=== PATIENT | male | born 1970 | race Caucasian/White ===

== ENCOUNTER 2016-02-06 05:56 | Emergency (ER) | payer MEDICARE, MEDICAID ==
[~2016-02-06 05:56] MED LIST: /AUGM875TA; DILA2TAB; FLAG250T; MELOPOW; METH5TAB2; MOBIC; NICO21DI4; PERC5TAB8; SOMA350T; VICO5TAB; XANAX
[2016-02-06] MEDS ORDERED: ONDANSETRON 4MG/2ML VIAL (J2405) As Ordered ONE (07:48)
[2016-02-06] MEDS ORDERED: KETOROLAC 30 MG/ML VIAL (J1885) As Ordered ONE (07:48)
[2016-02-06 07:59] LABS: BASO # 0.1 K/mm3 (0.0-0.2); BASO % 0.5 % (0.0-1.0); EOS # 0.1 K/mm3 (0.0-0.50); EOS % 0.7 % (0.0-3.0); LARGE UNSTAINED CELL # 0.1 K/mm3 (0.0-0.4); LARGE UNSTAINED CELL % 1.1 % (0.0-4.0); LYMPH # 1.2 K/mm3 (1.5-4.5); LYMPH % 10.1 % (24.0-44.0); MEAN CORPUSCULAR HEMOGLOBIN 29.9 pg (27.0-33.0); MEAN CORPUSCULAR HGB CONC 33.7 g/dl (32.0-36.5); MEAN CORPUSCULAR VOLUME 88.5 fl (80.0-96.0); MONO # 0.6 K/mm3 (0.0-0.8); MONO % 4.6 % (0.0-5.0); NEUTROPHILS # 10.2 K/mm3 (1.8-7.7); PLATELET COUNT, AUTOMATED 181 k/mm3 (150-450); RED CELL DISTRIBUTION WIDTH 13.2 % (11.5-14.5); WHITE BLOOD COUNT 12.3 K/mm3 (4.0-10.0)
[2016-02-06 08:11] LABS: AMPHETAMINES LEVEL URINE POSITIVE (NEGATIVE); BENZODIAZEPINES URINE POSITIVE (NEGATIVE); COCAINE METABOLITE URINE NEGATIVE (NEGATIVE); CONTROL LINE INT CTR LINE PRESENT; METHADONE URINE NEGATIVE (NEGATIVE); OPIATES URINE NEGATIVE (NEGATIVE); TRICYCLIC ANTIDEPRESS URINE NEGATIVE (NEGATIVE)
[2016-02-06 08:23] LABS: ALBUMIN 3.7 GM/DL (3.2-5.2); ALBUMIN/GLOBULIN RATIO 1.19 (1.00-1.93); ALKALINE PHOSPHATASE 101 U/L (45-117); ALT/SGPT 19 U/L (12-78); AMYLASE 65 U/L (25-115); ANION GAP 8 MEQ/L (8-16); AST/SGOT 11 U/L (15-37); BILIRUBIN,DIRECT 0.1 MG/DL (0.0-0.2); BILIRUBIN,TOTAL 0.4 MG/DL (0.2-1.0); BLOOD UREA NITROGEN 11 MG/DL (7-18); CALCIUM LEVEL 8.7 MG/DL (8.5-10.1); CARBON DIOXIDE LEVEL 27 MEQ/L (21-32); CHLORIDE LEVEL 107 MEQ/L (98-107); CREATININE FOR GFR 0.83 MG/DL (0.70-1.30); GLOMERULAR FILTRATION RATE > 60.0 (>60); GLUCOSE, FASTING 104 MG/DL (70-105); POTASSIUM SERUM 3.8 MEQ/L (3.5-5.1); SODIUM LEVEL 142 MEQ/L (136-145); TOTAL PROTEIN 6.8 GM/DL (6.4-8.2)
--- NOTE | 2016-02-06 08:29 | REP ---
Clinical: Foreign body. Technique: AP and lateral views of the soft tissues neck. Findings: Visualized soft tissues are normal in appearance and position. No subcutaneous emphysema or radiodense foreign body appreciated. The nasopharyngeal through upper tracheal airway is patent and normal. Prevertebral soft tissues are normal. Osseous structures are intact. Moderate degenerative changes noted at the C5-6 and C6-7 level. Impression: Normal soft tissues without obvious foreign body or subcutaneous emphysema. Signed by Glenn Hauser MD 02/06/2016 08:21 A
--- NOTE | 2016-02-06 08:37 | REP ---
Clinical: Abdominal pain. Technique: Single supine view of the abdomen and pelvis. Findings: Bowel gas pattern is nonspecific. No organomegaly. No abnormal calcifications. Skeletal structures are intact. Impression: Nonspecific bowel gas pattern. Signed by Glenn Hauser MD 02/06/2016 08:29 A
--- NOTE | 2016-02-06 09:34 | EDDOCDS ---
Physician Documentation [facility] Name: Mikie Zhang Age: 45 yrs Sex: Male : 1970 Arrival Date: 02/06/2016 Time: 05:56 Bed 14 Private MD: Disposition: 02/06/16 09:10 Discharged to Home/Self Care. Impression: Foreign body of alimentary tract, part unspecified - Swallowed Tooth brush cap per pt, Generalized abdominal pain, Opioid abuse with unspecified opioid-induced disorder - Benzodiazepine and amphetamine abuse, Superficial injury of head. - Condition is Stable. - Discharge Instructions: Abdominal Pain, Adult, Opioid Use Disorder, Swallowed Foreign Body, Adult, [id number], Head Injury, Adult, Aqvy-js-Ivkj. - Prescriptions for Bentyl 20 mg Oral Tablet - take 1 tablet by ORAL route every 6 hours As needed; 20 tablet. Ibuprofen 800 mg Oral Tablet - take 1 tablet by ORAL route every 8 hours As needed take with food; 30 tablet. ZOFRAN ODT 4 mg - dissolve 1 tablet by ORAL route 4 times per day As needed do not chew, do not swallow whole; 10 tablet. - Medication Reconciliation, Local Pharmacy Hours, Referral List Call for Appointment form. - [facility] ; When: 1 - 2 days; Reason: Recheck today's complaints, Continuance of care. Follow up: Emergency Department; Reason: Worsening of conditions. - Problem is new. - Symptoms have improved. Historical: - Allergies: Sporanox; - Home Meds: 1. none - PMHx: Unable to obtain; - PSHx: none; - Social history: Smoking status: Patient uses tobacco products, current some day smoker. Patient/guardian denies using alcohol, street drugs, No barriers to communication noted, The patient speaks fluent Telugu. - Family history: Not pertinent. - : The pt / caregiver states he / she is not on anticoagulants. Home medication list is obtained from the patient. - Exposure Risk Screening:: None identified. Vital Signs: 02/05 05:55 BP 139 / 65 (auto/); af2 05:57 Pulse 118 MON; Pulse Ox 96% ; af2 05:58 Pulse 116 MON; Pulse Ox 95% ; af2 06:04 BP 139 / 65; Pulse 117; Resp 18; Temp 98.1(TE); Pulse Ox 95% on R/A; Weight 81.65 kg / jp6 180.01 lbs; Height 6 ft. 0 in. (182.88 cm); Pain 8/10; 06:46 BP 149 / 96 (auto/); af2 08:56 BP 137 / 85; Pulse 104; Resp 18; Pulse Ox 97% on R/A; Pain 8/10; jjr 06:04 Body Mass Index 24.41 (81.65 kg, 182.88 cm) jp6 MDM: 07:25 IV Saline Lock ordered. ef1 07:25 NS 0.9% 1000 ml IV at bolus once ordered. ef1 07:25 Ondansetron 4 mg IVP once ordered. ef1 07:25 ketorolac 30 mg IVP once ordered. ef1 07:25 Undress patient appropriately for examination ordered. ef1 07:27 KUB Ordered. EDMS 07:27 Soft Tissue Neck Ordered. EDMS 07:27 Amylase Ordered. EDMS 07:27 Basic Metabolic Profile Ordered. EDMS 07:27 CBC with Diff Ordered. EDMS 07:27 Lipase Ordered. EDMS 07:27 Liver Profile Ordered. EDMS 07:27 Urinalysis Ordered. EDMS 07:27 Urine Culture Ordered. EDMS 07:27 Drug Eval Toxicology ED Only Ordered. EDMS 07:27 NOTHING BY MOUTH+DIET ordered. EDMS 07:30 ETHYL ALCOHOL (ETHANOL) Ordered. EDMS 08:49 CBC with Diff Reviewed. ef1 08:49 Liver Profile Reviewed. ef1 08:49 Drug Eval Toxicology ED Only Reviewed. ef1 08:49 Amylase Reviewed. ef1 08:49 Basic Metabolic Profile Reviewed. ef1 08:49 Lipase Reviewed. ef1 08:49 Urinalysis Reviewed. ef1 08:49 ETHYL ALCOHOL (ETHANOL) Reviewed. ef1 08:49 Soft Tissue Neck Reviewed. ef1 Administered Medications: 08:01 Drug: NS 0.9% 1000 ml [sodium chloride 0.9 % intravenous solution] Route: IV; Rate: hs1 bolus; Site: right antecubital; 09:31 Follow up: IV Status: Infusion discontinued; IV Intake: 400ml jjr 08:07 Drug: Ondansetron 4 mg [ondansetron HCl 2 mg/mL intravenous solution (2 mL)] Route: pml IVP; Site: right antecubital; 08:07 Drug: ketorolac 30 mg [ketorolac 30 mg/mL (1 mL) injection solution (1 mL)] Route: IVP; pml Site: right antecubital; Signatures: Dispatcher [employer] Nydia Hopkins, RN RN Natalie Perez PA-C [id number] ef1 Nydia Haro RN RN jp6 Areli Mendenhall RN 1 Sheila Amezcua RN pml The chart was reviewed and I authenticate all verbal orders and agree with the evaluation and treatment provided.Corrections: (The following items were deleted from the chart) 06:04 06:02 PMHx: Chronic Back pain [Inactive]; jp6 jp6 07:31 07:28 ETHYL ALCOHOL (ETHANOL)+LAB ordered. EDMS EDMS 08:10 07:27 Abdomen,Flat\E\Upright,PA CHEST+XR ordered. EDMS EDMS MTDD
--- NOTE | 2016-02-06 09:34 | EDDOCDS ---
Nurse's Notes [facility] Name: Mikie Zhang Age: 45 yrs Sex: Male : 1970 Arrival Date: 02/06/2016 Time: 05:56 Bed 14 Private MD: Diagnosis: Foreign body of alimentary tract, part unspecified-Swallowed Tooth brush cap per pt;Generalized abdominal pain;Opioid abuse with unspecified opioid-induced disorder-Benzodiazepine and amphetamine abuse;Superficial injury of head Presentation: 02/05 06:00 Presenting complaint: Patient states: "I was walking down stairs and my arm hit the jp6 wall and I swallowed my toothbrush cap=-3hours before this happened I was going to call ambulance for my intestine pain-allergy: pt stated I had morphine once and it made my heart feel funny so they give me dilaudid now,just thought you'd like to know". Adult Sepsis Screening: The patient does not have new or worsening altered mentation. Patient's respiratory rate is less than 22. Systolic blood pressure is greater than 100. Patient has a qSOFA score of 0- Negative Sepsis Screen. Suicide/Homicide risk assessment- the patient denies having any suicidal and/or homicidal ideations and does not present with any other emotional, behavioral or mental health complaints. Status: Patient is not a client services associate or dependent. Transition of care: patient was not received from another setting of care. 06:00 Acuity: CRISTÓBAL Level 4 jp6 06:00 Method Of Arrival: Ambulance jp6 Triage Assessment: 06:04 General: Appears distressed, uncomfortable, well developed, Behavior is cooperative, jp6 restless. Pain: Location: abdomen. HIV screening NA for this visit. The patient is triaged at the bedside. See Assessment in Nurses Notes section of ED record. Neurological: No deficits noted. Level of Consciousness is awake, alert, Oriented to person, place, time, EENT: No deficits noted. Cardiovascular: No deficits noted. Respiratory: Airway is patent Respiratory effort is even, unlabored, Respiratory pattern is regular, symmetrical, Breath sounds with wheezes expiratory. GI: Abdomen is flat, Bowel sounds hypoactive in right upper quadrant, left upper quadrant, right lower quadrant and left lower quadrant. : No deficits noted. Derm: No deficits noted. Skin is pink, warm & dry. Musculoskeletal: No deficits noted. Historical: - Allergies: Sporanox; - Home Meds: 1. none - PMHx: Unable to obtain; - PSHx: none; - Social history: Smoking status: Patient uses tobacco products, current some day smoker. Patient/guardian denies using alcohol, street drugs, No barriers to communication noted, The patient speaks fluent [place]. - Family history: Not pertinent. - : The pt / caregiver states he / she is not on anticoagulants. Home medication list is obtained from the patient. - Exposure Risk Screening:: None identified. Screenin:08 Screening information is obtained from the patient. Fall risk: No risks identified. jp6 Assistance ADL's: requires no assistance with activities of daily living. Abuse/DV Screen: The patient / caregiver reports he/she is: not in a situation that causes fear, pain or injury. Nutritional screening: No deficits noted. Advance Directives: Currently, there is no health care proxy. There is no active DNR order. There is no living will. home support is adequate. Assessment: 06:08 General: see triage assessment. jp6 06:48 General: pt found on floor of room per house keeper, pt put himself back in bed, denies sls1 loc, pt has noted laceration to back of his head, Dr Fountain aware. Pt denies neck pain or loc. 07:50 General: Appears in no apparent distress, unkempt, Behavior is appropriate for age, pml cooperative. Pain: Location: abdomen Pain currently is 8 out of 10 on a pain scale. Neurological: Level of Consciousness is awake, alert, Oriented to person, place, time. EENT: Reports "scratching" in his throat. Cardiovascular: Capillary refill < 3 seconds. Respiratory: Airway is patent Respiratory effort is even, unlabored. GI: Abdomen is non- distended. Derm: Skin is pink, warm & dry. 08:07 General: Pt stating Toradol and Zofran do not work for him - PA aware and no new pml orders. Pt advised that the provider will not be prescribing any new meds at this time. Pt agrees to take prescribed toradol and zofran. states "It wont work I'll just be calling out in 20 minutes" states "She has an oath to uphold, she has to make sure I leave here without pain" . 08:56 General: Appears in no apparent distress, reports no change in diffuse cramping abd jjr pain, denies nausea, reports diarrhea, abd pain for past 1.5 days, pt was requesting to leave to smoke informed he can't leave dept with IV access pt verbalizes understanding. 09:32 General: Appears in no apparent distress, Behavior is appropriate for age. General: jjr reports will walk 2 blocks to home. Pain: Location: abdomen. Neurological: Level of Consciousness is awake, alert, obeys commands, Moves all extremities. Gait is steady, Speech is normal. GI: Denies nausea. Derm: No deficits noted. Vital Signs: 05:55 BP 139 / 65 (auto/); af2 05:57 Pulse 118 MON; Pulse Ox 96% ; af2 05:58 Pulse 116 MON; Pulse Ox 95% ; af2 06:04 BP 139 / 65; Pulse 117; Resp 18; Temp 98.1(TE); Pulse Ox 95% on R/A; Weight 81.65 kg; jp6 Height 6 ft. 0 in. (182.88 cm); Pain 8/10; 06:46 BP 149 / 96 (auto/); af2 08:56 BP 137 / 85; Pulse 104; Resp 18; Pulse Ox 97% on R/A; Pain 8/10; jjr 06:04 Body Mass Index 24.41 (81.65 kg, 182.88 cm) jp6 Vitals: 06:04 Log In Time N/A - ambulance arrival. jp6 ED Course: 05:57 Patient visited by Zoe Pelaez PCA. tmm1 05:57 Patient moved to 14 tm 05:59 Zahra Suarez LPN is Primary Nurse. slm 06:00 Nydia Haro,RN is Primary Nurse. jp6 06:00 Patient visited by Nydia Haro,YESSENIA. jp6 06:02 Triage Initiated jp6 06:08 The patient / caregiver is instructed regarding the plan of care and ED course. jp6 06:49 Patient visited by Oneyda Lee,RN. af2 07:09 Natalie Ramos PA-C is PHCP. ef1 07:09 Sarah Wayne MD is Attending Physician. ef1 07:10 Patient visited by Natalie Ramos PA-C. ef1 07:42 Patient visited by Natalie Ramos PA-C. ef1 07:50 Patient has correct armband on for positive identification. Placed in gown. Bed in low pml position. Side rails up X2. 07:50 Inserted peripheral IV: 20gauge IV in right antecubital area and blood collected. pml Patient tolerated the procedure well. 07:53 Patient visited by Sheila Amezcua RN. pml 08:09 Patient visited by Sheila Amezcua RN. pml 08:37 Soft Tissue Neck Returned. EDMS 08:49 Patient visited by Natalie Ramos PA-C. ef1 09:00 KUB Returned. EDMS 09:10 [facility] is Referral Physician. ef1 09:32 Discontinued lock intact, bleeding controlled, pressure dressing applied, No jjr redness/swelling at site. No procedures done that require assistance. Administered Medications: 08:01 Drug: NS 0.9% 1000 ml [sodium chloride 0.9 % intravenous solution] Route: IV; Rate: hs1 bolus; Site: right antecubital; 09:31 Follow up: IV Status: Infusion discontinued; IV Intake: 400ml jjr 08:07 Drug: Ondansetron 4 mg [ondansetron HCl 2 mg/mL intravenous solution (2 mL)] Route: pml IVP; Site: right antecubital; 08:07 Drug: ketorolac 30 mg [ketorolac 30 mg/mL (1 mL) injection solution (1 mL)] Route: IVP; pml Site: right antecubital; Intake: 09:31 IV: 400.00ml; Total: 400.00ml. jjr Order Results: Lab Order: Amylase; SPEC'M 02/06/16 07:48 Test: AMYLASE; Value: 65; Range: 25-115; Units: U/L; Status: F Lab Order: Basic Metabolic Profile; SPEC'M 02/06/16 07:48 Test: GLUCOSE, FASTING; Value: 104; Range: 70-105; Units: MG/DL; Status: F Test: BLOOD UREA NITROGEN; Value: 11; Range: 7-18; Units: MG/DL; Status: F Test: CREATININE FOR GFR; Value: 0.83; Range: 0.70-1.30; Units: MG/DL; Status: F Test: GLOMERULAR FILTRATION RATE; Value: > 60.0; Range: >60; Status: F Test: SODIUM LEVEL; Value: 142; Range: 136-145; Units: MEQ/L; Status: F Test: POTASSIUM SERUM; Value: 3.8; Range: 3.5-5.1; Units: MEQ/L; Status: F Test: CHLORIDE LEVEL; Value: 107; Range: 98-107; Units: MEQ/L; Status: F Test: CARBON DIOXIDE LEVEL; Value: 27; Range: 21-32; Units: MEQ/L; Status: F Test: ANION GAP; Value: 8; Range: 8-16; Units: MEQ/L; Status: F Test: CALCIUM LEVEL; Value: 8.7; Range: 8.5-10.1; Units: MG/DL; Status: F Test Note: ; Units are mL/min/1.73 m2 Chronic Kidney Disease Staging per NKF: Stage I & II GFR >=60 Normal to Mildly Decreased Stage III GFR 30-59 Moderately Decreased Stage IV GFR 15-29 Severely Decreased Stage V GFR <15 Very Little GFR Left ESRD GFR <15 on HUB BORER Lab Order: CBC with Diff; SPEC'M 02/06/16 07:48 Test: WHITE BLOOD COUNT; Value: 12.3; Range: 4.0-10.0; Abnormal: Above high normal; Units: K/mm3; Status: F Test: RED BLOOD COUNT; Value: 4.83; Range: 4.30-6.10; Units: M/mm3; Status: F Test: HEMOGLOBIN; Value: 14.4; Range: 14.0-18.0; Units: g/dl; Status: F Test: HEMATOCRIT; Value: 42.8; Range: 42.0-52.0; Units: %; Status: F Test: MEAN CORPUSCULAR VOLUME; Value: 88.5; Range: 80.0-96.0; Units: fl; Status: F Test: MEAN CORPUSCULAR HEMOGLOBIN; Value: 29.9; Range: 27.0-33.0; Units: pg; Status: F Test: MEAN CORPUSCULAR HGB CONC; Value: 33.7; Range: 32.0-36.5; Units: g/dl; Status: F Test: RED CELL DISTRIBUTION WIDTH; Value: 13.2; Range: 11.5-14.5; Units: %; Status: F Test: PLATELET COUNT, AUTOMATED; Value: 181; Range: 150-450; Units: k/mm3; Status: F Test: NEUTROPHILS %; Value: 83.0; Range: 36.0-66.0; Abnormal: Above high normal; Units: %; Status: F Test: LYMPH %; Value: 10.1; Range: 24.0-44.0; Abnormal: Below low normal; Units: %; Status: F Test: MONO %; Value: 4.6; Range: 0.0-5.0; Units: %; Status: F Test: EOS %; Value: 0.7; Range: 0.0-3.0; Units: %; Status: F Test: BASO %; Value: 0.5; Range: 0.0-1.0; Units: %; Status: F Test: LARGE UNSTAINED CELL %; Value: 1.1; Range: 0.0-4.0; Units: %; Status: F Test: NEUTROPHILS #; Value: 10.2; Range: 1.8-7.7; Abnormal: Above high normal; Units: K/mm3; Status: F Test: LYMPH #; Value: 1.2; Range: 1.5-4.5; Abnormal: Below low normal; Units: K/mm3; Status: F Test: MONO #; Value: 0.6; Range: 0.0-0.8; Units: K/mm3; Status: F Test: EOS #; Value: 0.1; Range: 0.0-0.50; Units: K/mm3; Status: F Test: BASO #; Value: 0.1; Range: 0.0-0.2; Units: K/mm3; Status: F Test: LARGE UNSTAINED CELL #; Value: 0.1; Range: 0.0-0.4; Units: K/mm3; Status: F Lab Order: Lipase; SPEC' 02/06/16 07:48 Test: LIPASE; Value: 94; Range: 73-393; Units: U/L; Status: F Lab Order: Liver Profile; SPEC' 02/06/16 07:48 Test: AST/SGOT; Value: 11; Range: 15-37; Abnormal: Below low normal; Units: U/L; Status: F Test: ALT/SGPT; Value: 19; Range: 12-78; Units: U/L; Status: F Test: ALKALINE PHOSPHATASE; Value: 101; Range: 45-117; Units: U/L; Status: F Test: BILIRUBIN,TOTAL; Value: 0.4; Range: 0.2-1.0; Units: MG/DL; Status: F Test: BILIRUBIN,DIRECT; Value: 0.1; Range: 0.0-0.2; Units: MG/DL; Status: F Test: TOTAL PROTEIN; Value: 6.8; Range: 6.4-8.2; Units: GM/DL; Status: F Test: ALBUMIN; Value: 3.7; Range: 3.2-5.2; Units: GM/DL; Status: F Test: ALBUMIN/GLOBULIN RATIO; Value: 1.19; Range: 1.00-1.93; Status: F Lab Order: Urinalysis; SPEC'M 02/06/16 07:48 Test: APPEARANCE, URINE; Value: CLEAR; Range: CLEAR; Status: F Test: COLOR, URINE; Value: YELLOW; Range: YELLOW; Status: F Test: PH,URINE; Value: 7.0; Range: 5.0-9.0; Units: UNITS; Status: F Test: SPECIFIC GRAVITY URINE AUTO; Value: 1.014; Range: 1.002-1.035; Status: F Test: PROTEIN, URINE AUTO; Value: NEGATIVE; Range: NEGATIVE; Units: mg/dL; Status: F Test: GLUCOSE, URINE (UA) AUTO; Value: NEGATIVE; Range: NEGATIVE; Units: mg/dL; Status: F Test: KETONE, URINE AUTO; Value: NEGATIVE; Range: NEGATIVE; Units: mg/dL; Status: F Test: UROBILINOGEN, URINE AUTO; Value: 0.2; Range: 0.0-2.0; Units: mg/dL; Status: F Test: BILIRUBIN, URINE AUTO; Value: NEGATIVE; Range: NEGATIVE; Status: F Test: NITRITE, URINE AUTO; Value: NEGATIVE; Range: NEGATIVE; Status: F Test: LEUKOCYTE ESTERASE, URINE AUTO; Value: NEGATIVE; Range: NEGATIVE; Status: F Test: BLOOD, URINE BLOOD; Value: NEGATIVE; Range: NEGATIVE; Status: F Test: WBC, URINE AUTO; Value: 0; Range: 0-3; Units: /HPF; Status: F Test: RBC, URINE AUTO; Value: 1; Range: 0-3; Units: /HPF; Status: F Test: BACTERIA, URINE AUTO; Value: NEGATIVE; Range: NEGATIVE; Status: F Test: SQUAMOUS EPITHELIAL CELL UR AU; Value: 0; Range: 0-6; Units: /HPF; Status: F Test: MUCUS, URINE; Value: SMALL; Range: NEGATIVE; Status: F Test: HYALINE CAST, URINE AUTO; Value: 11; Range: 0-1; Units: /LPF; Status: F Lab Order: Drug Eval Toxicology ED Only; SPEC'M 02/06/16 07:48 Test: AMPHETAMINES LEVEL URINE; Value: POSITIVE; Range: NEGATIVE; Abnormal: Above high normal; Status: F Test: BARBITURATES URINE; Value: NEGATIVE; Range: NEGATIVE; Status: F Test: BENZODIAZEPINES URINE; Value: POSITIVE; Range: NEGATIVE; Abnormal: Above high normal; Status: F Test: CANNABINOIDS URINE; Value: NEGATIVE; Range: NEGATIVE; Status: F Test: COCAINE METABOLITE URINE; Value: NEGATIVE; Range: NEGATIVE; Status: F Test: METHADONE URINE; Value: NEGATIVE; Range: NEGATIVE; Status: F Test: OPIATES URINE; Value: NEGATIVE; Range: NEGATIVE; Status: F Test: TRICYCLIC ANTIDEPRESS URINE; Value: NEGATIVE; Range: NEGATIVE; Status: F Test Note: ; ALL PRESUMPTIVE POSITIVE FINDINGS ARE UNCONFIRMED NORMAL VALUES THRESHOLD IN NG/ML AMPHETAMINES 1000 METHAMPHETAMINES 1000 BARBITURATES 300 BENZODIAZEPINES 300 CANNABINOIDS (THC) 50 COCAINE METABOLITE 300 METHADONE 300 OPIATES 300 PHENCYCLIDINE 25 TRICYCLIC ANTIDEPRESSANTS 1000 RESULTS ARE FOR MEDICAL PURPOSES ONLY. ALL URINE SPECIMENS WILL BE SAVED FOR 3 DAYS. IF CONFIRMATION OF A PRESUMPTIVE POSTIVE SCREEN RESULT IS DESIRED, CALL CHEMISTRY ([phone]) AND REQUEST URINE TO BE SENT TO REFERENCE LAB. FOR A LIST OF CLOSELY RELATED COMPOUNDS PLEASE CALL THE LAB. Lab Order: ETHYL ALCOHOL (ETHANOL); SPEC'M 02/06/16 07:48 Test: ETHYL ALCOHOL (ETHANOL); Value: < 0.003; Range: 0.000-0.010; Units: %; Status: F Radiology Order: KUB Test: KUB REASON FOR EXAMINATION: Abdomen Pain; Clinical: Abdominal pain.; ; Technique: Single supine view of the abdomen and pelvis.; ; Findings:; Bowel gas pattern is nonspecific. No organomegaly. No abnormal calcifications.; Skeletal structures are intact.; ; Impression:; Nonspecific bowel gas pattern.; ; ; ; Signed by; Glenn Hauser MD 02/06/2016 08:29 A; Radiology Order: Soft Tissue Neck Test: Soft Tissue Neck REASON FOR EXAMINATION: Foreign Body; Clinical: Foreign body.; ; Technique: AP and lateral views of the soft tissues neck.; ; Findings:; Visualized soft tissues are normal in appearance and position. No subcutaneous; emphysema or radiodense foreign body appreciated. The nasopharyngeal through; upper tracheal airway is patent and normal. Prevertebral soft tissues are; normal. Osseous structures are intact. Moderate degenerative changes noted at; the C5-6 and C6-7 level.; ; Impression:; Normal soft tissues without obvious foreign body or subcutaneous emphysema.; ; ; Signed by; Glenn Hauser MD 02/06/2016 08:21 A; Outcome: 09:10 Discharge ordered by Provider. ef1 09:32 Discharge Assessment: patient administered narcotics - no. The following High Risk jjr Discharge criteria are identified: None. Discharged to home ambulatory. Condition: stable. Discharge instructions given to patient, Instructed on discharge instructions, follow up and referral plans. medication usage, Demonstrated understanding of instructions, medications, Prescriptions given X 3. No special radiology studies were completed. Property sent home with patient. 09:33 Patient left the ED. jjr Signatures: Dispatcher [employer] EDMS Nydia Estrada, RN RN jjr Natalie Ramos, PA-C PA-C ef1 Areli Mendenhall RN RN hs1 Yane Yang RN RN sls1 Sheila Amezcua,RN RN pml McLear, Zoe, BREAD WRAPPING MACHINE FEEDER BREAD WRAPPING MACHINE FEEDER tmm1 Zahra Suarez,RESTAURANT ASSOCIATE RESTAURANT ASSOCIATE Oneyda Gutierrez RN RN af2 Nydia Haro,RN RN jp6 Corrections: (The following items were deleted from the chart) 06:04 06:02 PMHx: Chronic Back pain [Inactive]; jp6 jp6 MTDD
--- NOTE | 2016-02-08 10:34 | EDDOCDS ---
Physician Documentation [facility] Name: Mikie Zhang Age: 45 yrs Sex: Male : 1970 Arrival Date: 02/06/2016 Time: 05:56 Bed 14 Private MD: Disposition: 02/06/16 09:10 Discharged to Home/Self Care. Impression: Foreign body of alimentary tract, part unspecified - Swallowed Tooth brush cap per pt, Generalized abdominal pain, Opioid abuse with unspecified opioid-induced disorder - Benzodiazepine and amphetamine abuse, Superficial injury of head. - Condition is Stable. - Discharge Instructions: Abdominal Pain, Adult, Opioid Use Disorder, Swallowed Foreign Body, Adult, [id number], Head Injury, Adult, [id number]. - Prescriptions for Bentyl 20 mg Oral Tablet - take 1 tablet by ORAL route every 6 hours As needed; 20 tablet. Ibuprofen 800 mg Oral Tablet - take 1 tablet by ORAL route every 8 hours As needed take with food; 30 tablet. ZOFRAN ODT 4 mg - dissolve 1 tablet by ORAL route 4 times per day As needed do not chew, do not swallow whole; 10 tablet. - Medication Reconciliation, Local Pharmacy Hours, Referral List Call for Appointment form. - [facility] ; When: 1 - 2 days; Reason: Recheck today's complaints, Continuance of care. Follow up: Emergency Department; Reason: Worsening of conditions. - Problem is new. - Symptoms have improved. Historical: - Allergies: Sporanox; - Home Meds: 1. none - PMHx: Unable to obtain; - PSHx: none; - Social history: Smoking status: Patient uses tobacco products, current some day smoker. Patient/guardian denies using alcohol, street drugs, No barriers to communication noted, The patient speaks fluent Yi. - Family history: Not pertinent. - : The pt / caregiver states he / she is not on anticoagulants. Home medication list is obtained from the patient. - Exposure Risk Screening:: None identified. Vital Signs: 02/05 05:55 BP 139 / 65 (auto/); af2 05:57 Pulse 118 MON; Pulse Ox 96% ; af2 05:58 Pulse 116 MON; Pulse Ox 95% ; af2 06:04 BP 139 / 65; Pulse 117; Resp 18; Temp 98.1(TE); Pulse Ox 95% on R/A; Weight 81.65 kg / jp6 180.01 lbs; Height 6 ft. 0 in. (182.88 cm); Pain 8/10; 06:46 BP 149 / 96 (auto/); af2 08:56 BP 137 / 85; Pulse 104; Resp 18; Pulse Ox 97% on R/A; Pain 8/10; jjr 06:04 Body Mass Index 24.41 (81.65 kg, 182.88 cm) jp6 MDM: 07:25 IV Saline Lock ordered. ef1 07:25 NS 0.9% 1000 ml IV at bolus once ordered. ef1 07:25 Ondansetron 4 mg IVP once ordered. ef1 07:25 ketorolac 30 mg IVP once ordered. ef1 07:25 Undress patient appropriately for examination ordered. ef1 07:27 KUB Ordered. EDMS 07:27 Soft Tissue Neck Ordered. EDMS 07:27 Amylase Ordered. EDMS 07:27 Basic Metabolic Profile Ordered. EDMS 07:27 CBC with Diff Ordered. EDMS 07:27 Lipase Ordered. EDMS 07:27 Liver Profile Ordered. EDMS 07:27 Urinalysis Ordered. EDMS 07:27 Urine Culture Ordered. EDMS 07:27 Drug Eval Toxicology ED Only Ordered. EDMS 07:27 NOTHING BY MOUTH+DIET ordered. EDMS 07:30 ETHYL ALCOHOL (ETHANOL) Ordered. EDMS 08:49 CBC with Diff Reviewed. ef1 08:49 Liver Profile Reviewed. ef1 08:49 Drug Eval Toxicology ED Only Reviewed. ef1 08:49 Amylase Reviewed. ef1 08:49 Basic Metabolic Profile Reviewed. ef1 08:49 Lipase Reviewed. ef1 08:49 Urinalysis Reviewed. ef1 08:49 ETHYL ALCOHOL (ETHANOL) Reviewed. ef1 08:49 Soft Tissue Neck Reviewed. ef1 09:37 Financial registration complete. mm15 10:08 [facility] Payment Agreement was scanned into [employer] and attached to record. mm15 11:30 T-Sheet-- Draft Copy was scanned into [employer] and attached to record. [facility] 02/06 12:50 Radiology Report was scanned into [employer] and attached to record. gb Administered Medications: 02/05 08:01 Drug: NS 0.9% 1000 ml [sodium chloride 0.9 % intravenous solution] Route: IV; Rate: hs1 bolus; Site: right antecubital; 09:31 Follow up: IV Status: Infusion discontinued; IV Intake: 400ml j 08:07 Drug: Ondansetron 4 mg [ondansetron HCl 2 mg/mL intravenous solution (2 mL)] Route: pml IVP; Site: right antecubital; 08:07 Drug: ketorolac 30 mg [ketorolac 30 mg/mL (1 mL) injection solution (1 mL)] Route: IVP; pml Site: right antecubital; Signatures: Dispatcher [employer] EDMS Jia Wiggins, Reg Reg gb Nydia Estrada, RN RN Natalie Perez PA-C PAAbdirizakC ef1 Tushar Alicia mm15 Nydia Haro,RN RN jp6 Sarah Serrato Hannah RN hs1 Sheila Amezcua RN pml The chart was reviewed and I authenticate all verbal orders and agree with the evaluation and treatment provided.Corrections: (The following items were deleted from the chart) 06:04 06:02 PMHx: Chronic Back pain [Inactive]; jp6 jp6 07:31 07:28 ETHYL ALCOHOL (ETHANOL)+LAB ordered. EDMS EDMS 08:10 07:27 Abdomen,Flat\E\Upright,PA CHEST+XR ordered. EDMS EDMS Attachments: 10:08 [facility] Payment Agreement mm15 11:30 T-Sheet-- Draft Copy [facility] Chart Complete MTDD
--- NOTE | 2016-02-08 10:34 | EDDOCDS ---
Nurse's Notes [facility] Name: Mikie Zhang Age: 45 yrs Sex: Male : 1970 Arrival Date: 02/06/2016 Time: 05:56 Bed 14 Private MD: Diagnosis: Foreign body of alimentary tract, part unspecified-Swallowed Tooth brush cap per pt;Generalized abdominal pain;Opioid abuse with unspecified opioid-induced disorder-Benzodiazepine and amphetamine abuse;Superficial injury of head Presentation: 02/05 06:00 Presenting complaint: Patient states: "I was walking down stairs and my arm hit the jp6 wall and I swallowed my toothbrush cap=-3hours before this happened I was going to call ambulance for my intestine pain-allergy: pt stated I had morphine once and it made my heart feel funny so they give me dilaudid now,just thought you'd like to know". Adult Sepsis Screening: The patient does not have new or worsening altered mentation. Patient's respiratory rate is less than 22. Systolic blood pressure is greater than 100. Patient has a qSOFA score of 0- Negative Sepsis Screen. Suicide/Homicide risk assessment- the patient denies having any suicidal and/or homicidal ideations and does not present with any other emotional, behavioral or mental health complaints. Status: Patient is not a driver service technician or dependent. Transition of care: patient was not received from another setting of care. 06:00 Acuity: CRISTÓBAL Level 4 jp6 06:00 Method Of Arrival: Ambulance jp6 Triage Assessment: 06:04 General: Appears distressed, uncomfortable, well developed, Behavior is cooperative, jp6 restless. Pain: Location: abdomen. HIV screening NA for this visit. The patient is triaged at the bedside. See Assessment in Nurses Notes section of ED record. Neurological: No deficits noted. Level of Consciousness is awake, alert, Oriented to person, place, time, EENT: No deficits noted. Cardiovascular: No deficits noted. Respiratory: Airway is patent Respiratory effort is even, unlabored, Respiratory pattern is regular, symmetrical, Breath sounds with wheezes expiratory. GI: Abdomen is flat, Bowel sounds hypoactive in right upper quadrant, left upper quadrant, right lower quadrant and left lower quadrant. : No deficits noted. Derm: No deficits noted. Skin is pink, warm & dry. Musculoskeletal: No deficits noted. Historical: - Allergies: Sporanox; - Home Meds: 1. none - PMHx: Unable to obtain; - PSHx: none; - Social history: Smoking status: Patient uses tobacco products, current some day smoker. Patient/guardian denies using alcohol, street drugs, No barriers to communication noted, The patient speaks fluent Surinamese. - Family history: Not pertinent. - : The pt / caregiver states he / she is not on anticoagulants. Home medication list is obtained from the patient. - Exposure Risk Screening:: None identified. Screenin:08 Screening information is obtained from the patient. Fall risk: No risks identified. jp6 Assistance ADL's: requires no assistance with activities of daily living. Abuse/DV Screen: The patient / caregiver reports he/she is: not in a situation that causes fear, pain or injury. Nutritional screening: No deficits noted. Advance Directives: Currently, there is no health care proxy. There is no active DNR order. There is no living will. home support is adequate. Assessment: 06:08 General: see triage assessment. jp6 06:48 General: pt found on floor of room per house keeper, pt put himself back in bed, denies sls1 loc, pt has noted laceration to back of his head, Dr Fountain aware. Pt denies neck pain or loc. 07:50 General: Appears in no apparent distress, unkempt, Behavior is appropriate for age, pml cooperative. Pain: Location: abdomen Pain currently is 8 out of 10 on a pain scale. Neurological: Level of Consciousness is awake, alert, Oriented to person, place, time. EENT: Reports "scratching" in his throat. Cardiovascular: Capillary refill < 3 seconds. Respiratory: Airway is patent Respiratory effort is even, unlabored. GI: Abdomen is non- distended. Derm: Skin is pink, warm & dry. 08:07 General: Pt stating Toradol and Zofran do not work for him - PA aware and no new pml orders. Pt advised that the provider will not be prescribing any new meds at this time. Pt agrees to take prescribed toradol and zofran. states "It wont work I'll just be calling out in 20 minutes" states "She has an oath to uphold, she has to make sure I leave here without pain" . 08:56 General: Appears in no apparent distress, reports no change in diffuse cramping abd jjr pain, denies nausea, reports diarrhea, abd pain for past 1.5 days, pt was requesting to leave to smoke informed he can't leave dept with IV access pt verbalizes understanding. 09:32 General: Appears in no apparent distress, Behavior is appropriate for age. General: jjr reports will walk 2 blocks to home. Pain: Location: abdomen. Neurological: Level of Consciousness is awake, alert, obeys commands, Moves all extremities. Gait is steady, Speech is normal. GI: Denies nausea. Derm: No deficits noted. Vital Signs: 05:55 BP 139 / 65 (auto/); af2 05:57 Pulse 118 MON; Pulse Ox 96% ; af2 05:58 Pulse 116 MON; Pulse Ox 95% ; af2 06:04 BP 139 / 65; Pulse 117; Resp 18; Temp 98.1(TE); Pulse Ox 95% on R/A; Weight 81.65 kg; jp6 Height 6 ft. 0 in. (182.88 cm); Pain 8/10; 06:46 BP 149 / 96 (auto/); af2 08:56 BP 137 / 85; Pulse 104; Resp 18; Pulse Ox 97% on R/A; Pain 8/10; jjr 06:04 Body Mass Index 24.41 (81.65 kg, 182.88 cm) jp6 Vitals: 06:04 Log In Time N/A - ambulance arrival. jp6 ED Course: 05:57 Patient visited by Zoe Pelaez PCA. tmm1 05:57 Patient moved to 14 tm 05:59 Zahra Suarez LPN is Primary Nurse. slm 06:00 Nydia Haro,RN is Primary Nurse. jp6 06:00 Patient visited by Nydia Haro,YESSENIA. jp6 06:02 Triage Initiated jp6 06:08 The patient / caregiver is instructed regarding the plan of care and ED course. jp6 06:49 Patient visited by Oneyda Lee,RN. af2 07:09 Natalie Ramos PA-C is PHCP. ef1 07:09 Sarah Wayne MD is Attending Physician. ef1 07:10 Patient visited by Natalie Ramos PA-C. ef1 07:42 Patient visited by Natalie Ramos PA-C. ef1 07:50 Patient has correct armband on for positive identification. Placed in gown. Bed in low pml position. Side rails up X2. 07:50 Inserted peripheral IV: 20gauge IV in right antecubital area and blood collected. pml Patient tolerated the procedure well. 07:53 Patient visited by Sheila Amezcua RN. pml 08:09 Patient visited by Sheila Amezcua RN. pml 08:37 Soft Tissue Neck Returned. EDMS 08:49 Patient visited by Natalie Ramos PA-C. ef1 09:00 KUB Returned. EDMS 09:10 [facility] is Referral Physician. ef1 09:32 Discontinued lock intact, bleeding controlled, pressure dressing applied, No jjr redness/swelling at site. No procedures done that require assistance. 10:08 [facility] Payment Agreement was scanned into [employer] and attached to record. mm15 10:45 Patient name changed from Mikie\\S\\\\S\\Zhang\\S\\ to Mikie\\S\\ \\S\\Zhang. EDMS 11:30 T-Sheet-- Draft Copy was scanned into [employer] and attached to record. [facility] 01 12:50 Radiology Report was scanned into [employer] and attached to record. gb Administered Medications: 02/05 08:01 Drug: NS 0.9% 1000 ml [sodium chloride 0.9 % intravenous solution] Route: IV; Rate: hs1 bolus; Site: right antecubital; 09:31 Follow up: IV Status: Infusion discontinued; IV Intake: 400ml jjr 08:07 Drug: Ondansetron 4 mg [ondansetron HCl 2 mg/mL intravenous solution (2 mL)] Route: pml IVP; Site: right antecubital; 08:07 Drug: ketorolac 30 mg [ketorolac 30 mg/mL (1 mL) injection solution (1 mL)] Route: IVP; [facility] Site: right antecubital; Intake: 09:31 IV: 400.00ml; Total: 400.00ml. jjr Order Results: Lab Order: Amylase; SPEC'M 02/06/16 07:48 Test: AMYLASE; Value: 65; Range: 25-115; Units: U/L; Status: F Lab Order: Basic Metabolic Profile; SPEC'M 02/06/16 07:48 Test: GLUCOSE, FASTING; Value: 104; Range: 70-105; Units: MG/DL; Status: F Test: BLOOD UREA NITROGEN; Value: 11; Range: 7-18; Units: MG/DL; Status: F Test: CREATININE FOR GFR; Value: 0.83; Range: 0.70-1.30; Units: MG/DL; Status: F Test: GLOMERULAR FILTRATION RATE; Value: > 60.0; Range: >60; Status: F Test: SODIUM LEVEL; Value: 142; Range: 136-145; Units: MEQ/L; Status: F Test: POTASSIUM SERUM; Value: 3.8; Range: 3.5-5.1; Units: MEQ/L; Status: F Test: CHLORIDE LEVEL; Value: 107; Range: 98-107; Units: MEQ/L; Status: F Test: CARBON DIOXIDE LEVEL; Value: 27; Range: 21-32; Units: MEQ/L; Status: F Test: ANION GAP; Value: 8; Range: 8-16; Units: MEQ/L; Status: F Test: CALCIUM LEVEL; Value: 8.7; Range: 8.5-10.1; Units: MG/DL; Status: F Test Note: ; Units are mL/min/1.73 m2 Chronic Kidney Disease Staging per NKF: Stage I & II GFR >=60 Normal to Mildly Decreased Stage III GFR 30-59 Moderately Decreased Stage IV GFR 15-29 Severely Decreased Stage V GFR <15 Very Little GFR Left ESRD GFR <15 on QUALIFIED CRAFT WORKER ELECT[employer]ICIAN Lab Order: CBC with Diff; SPEC'M 02/06/16 07:48 Test: WHITE BLOOD COUNT; Value: 12.3; Range: 4.0-10.0; Abnormal: Above high normal; Units: K/mm3; Status: F Test: RED BLOOD COUNT; Value: 4.83; Range: 4.30-6.10; Units: M/mm3; Status: F Test: HEMOGLOBIN; Value: 14.4; Range: 14.0-18.0; Units: g/dl; Status: F Test: HEMATOCRIT; Value: 42.8; Range: 42.0-52.0; Units: %; Status: F Test: MEAN CORPUSCULAR VOLUME; Value: 88.5; Range: 80.0-96.0; Units: fl; Status: F Test: MEAN CORPUSCULAR HEMOGLOBIN; Value: 29.9; Range: 27.0-33.0; Units: pg; Status: F Test: MEAN CORPUSCULAR HGB CONC; Value: 33.7; Range: 32.0-36.5; Units: g/dl; Status: F Test: RED CELL DISTRIBUTION WIDTH; Value: 13.2; Range: 11.5-14.5; Units: %; Status: F Test: PLATELET COUNT, AUTOMATED; Value: 181; Range: 150-450; Units: k/mm3; Status: F Test: NEUTROPHILS %; Value: 83.0; Range: 36.0-66.0; Abnormal: Above high normal; Units: %; Status: F Test: LYMPH %; Value: 10.1; Range: 24.0-44.0; Abnormal: Below low normal; Units: %; Status: F Test: MONO %; Value: 4.6; Range: 0.0-5.0; Units: %; Status: F Test: EOS %; Value: 0.7; Range: 0.0-3.0; Units: %; Status: F Test: BASO %; Value: 0.5; Range: 0.0-1.0; Units: %; Status: F Test: LARGE UNSTAINED CELL %; Value: 1.1; Range: 0.0-4.0; Units: %; Status: F Test: NEUTROPHILS #; Value: 10.2; Range: 1.8-7.7; Abnormal: Above high normal; Units: K/mm3; Status: F Test: LYMPH #; Value: 1.2; Range: 1.5-4.5; Abnormal: Below low normal; Units: K/mm3; Status: F Test: MONO #; Value: 0.6; Range: 0.0-0.8; Units: K/mm3; Status: F Test: EOS #; Value: 0.1; Range: 0.0-0.50; Units: K/mm3; Status: F Test: BASO #; Value: 0.1; Range: 0.0-0.2; Units: K/mm3; Status: F Test: LARGE UNSTAINED CELL #; Value: 0.1; Range: 0.0-0.4; Units: K/mm3; Status: F Lab Order: Lipase; SPEC'M 02/06/16 07:48 Test: LIPASE; Value: 94; Range: 73-393; Units: U/L; Status: F Lab Order: Liver Profile; SPEC'M 02/06/16 07:48 Test: AST/SGOT; Value: 11; Range: 15-37; Abnormal: Below low normal; Units: U/L; Status: F Test: ALT/SGPT; Value: 19; Range: 12-78; Units: U/L; Status: F Test: ALKALINE PHOSPHATASE; Value: 101; Range: 45-117; Units: U/L; Status: F Test: BILIRUBIN,TOTAL; Value: 0.4; Range: 0.2-1.0; Units: MG/DL; Status: F Test: BILIRUBIN,DIRECT; Value: 0.1; Range: 0.0-0.2; Units: MG/DL; Status: F Test: TOTAL PROTEIN; Value: 6.8; Range: 6.4-8.2; Units: GM/DL; Status: F Test: ALBUMIN; Value: 3.7; Range: 3.2-5.2; Units: GM/DL; Status: F Test: ALBUMIN/GLOBULIN RATIO; Value: 1.19; Range: 1.00-1.93; Status: F Lab Order: Urinalysis; SPEC'M 02/06/16 07:48 Test: APPEARANCE, URINE; Value: CLEAR; Range: CLEAR; Status: F Test: COLOR, URINE; Value: YELLOW; Range: YELLOW; Status: F Test: PH,URINE; Value: 7.0; Range: 5.0-9.0; Units: UNITS; Status: F Test: SPECIFIC GRAVITY URINE AUTO; Value: 1.014; Range: 1.002-1.035; Status: F Test: PROTEIN, URINE AUTO; Value: NEGATIVE; Range: NEGATIVE; Units: mg/dL; Status: F Test: GLUCOSE, URINE (UA) AUTO; Value: NEGATIVE; Range: NEGATIVE; Units: mg/dL; Status: F Test: KETONE, URINE AUTO; Value: NEGATIVE; Range: NEGATIVE; Units: mg/dL; Status: F Test: UROBILINOGEN, URINE AUTO; Value: 0.2; Range: 0.0-2.0; Units: mg/dL; Status: F Test: BILIRUBIN, URINE AUTO; Value: NEGATIVE; Range: NEGATIVE; Status: F Test: NITRITE, URINE AUTO; Value: NEGATIVE; Range: NEGATIVE; Status: F Test: LEUKOCYTE ESTERASE, URINE AUTO; Value: NEGATIVE; Range: NEGATIVE; Status: F Test: BLOOD, URINE BLOOD; Value: NEGATIVE; Range: NEGATIVE; Status: F Test: WBC, URINE AUTO; Value: 0; Range: 0-3; Units: /HPF; Status: F Test: RBC, URINE AUTO; Value: 1; Range: 0-3; Units: /HPF; Status: F Test: BACTERIA, URINE AUTO; Value: NEGATIVE; Range: NEGATIVE; Status: F Test: SQUAMOUS EPITHELIAL CELL UR AU; Value: 0; Range: 0-6; Units: /HPF; Status: F Test: MUCUS, URINE; Value: SMALL; Range: NEGATIVE; Status: F Test: HYALINE CAST, URINE AUTO; Value: 11; Range: 0-1; Units: /LPF; Status: F Lab Order: Urine Culture; SPEC'M 02/06/16 07:48 Test: URINE CULTURE; Value: URINE CULTURE RESULT NO GROWTH CLINICAL SIGNIFICANCE 1 ORGANISM; Status: F Lab Order: Drug Eval Toxicology ED Only; SPEC'M 02/06/16 07:48 Test: AMPHETAMINES LEVEL URINE; Value: POSITIVE; Range: NEGATIVE; Abnormal: Above high normal; Status: F Test: BARBITURATES URINE; Value: NEGATIVE; Range: NEGATIVE; Status: F Test: BENZODIAZEPINES URINE; Value: POSITIVE; Range: NEGATIVE; Abnormal: Above high normal; Status: F Test: CANNABINOIDS URINE; Value: NEGATIVE; Range: NEGATIVE; Status: F Test: COCAINE METABOLITE URINE; Value: NEGATIVE; Range: NEGATIVE; Status: F Test: METHADONE URINE; Value: NEGATIVE; Range: NEGATIVE; Status: F Test: OPIATES URINE; Value: NEGATIVE; Range: NEGATIVE; Status: F Test: TRICYCLIC ANTIDEPRESS URINE; Value: NEGATIVE; Range: NEGATIVE; Status: F Test Note: ; ALL PRESUMPTIVE POSITIVE FINDINGS ARE UNCONFIRMED NORMAL VALUES THRESHOLD IN NG/ML AMPHETAMINES 1000 METHAMPHETAMINES 1000 BARBITURATES 300 BENZODIAZEPINES 300 CANNABINOIDS (THC) 50 COCAINE METABOLITE 300 METHADONE 300 OPIATES 300 PHENCYCLIDINE 25 TRICYCLIC ANTIDEPRESSANTS 1000 RESULTS ARE FOR MEDICAL PURPOSES ONLY. ALL URINE SPECIMENS WILL BE SAVED FOR 3 DAYS. IF CONFIRMATION OF A PRESUMPTIVE POSTIVE SCREEN RESULT IS DESIRED, CALL CHEMISTRY ([phone]) AND REQUEST URINE TO BE SENT TO REFERENCE LAB. FOR A LIST OF CLOSELY RELATED COMPOUNDS PLEASE CALL THE LAB. Lab Order: ETHYL ALCOHOL (ETHANOL); SPEC'M 02/06/16 07:48 Test: ETHYL ALCOHOL (ETHANOL); Value: < 0.003; Range: 0.000-0.010; Units: %; Status: F Radiology Order: KUB Test: KUB REASON FOR EXAMINATION: Abdomen Pain; Clinical: Abdominal pain.; ; Technique: Single supine view of the abdomen and pelvis.; ; Findings:; Bowel gas pattern is nonspecific. No organomegaly. No abnormal calcifications.; Skeletal structures are intact.; ; Impression:; Nonspecific bowel gas pattern.; ; ; ; Signed by; Glenn Hauser MD 02/06/2016 08:29 A; Radiology Order: Soft Tissue Neck Test: Soft Tissue Neck REASON FOR EXAMINATION: Foreign Body; Clinical: Foreign body.; ; Technique: AP and lateral views of the soft tissues neck.; ; Findings:; Visualized soft tissues are normal in appearance and position. No subcutaneous; emphysema or radiodense foreign body appreciated. The nasopharyngeal through; upper tracheal airway is patent and normal. Prevertebral soft tissues are; normal. Osseous structures are intact. Moderate degenerative changes noted at; the C5-6 and C6-7 level.; ; Impression:; Normal soft tissues without obvious foreign body or subcutaneous emphysema.; ; ; Signed by; Glenn Hauser MD 02/06/2016 08:21 A; Outcome: 09:10 Discharge ordered by Provider. ef1 09:32 Discharge Assessment: patient administered narcotics - no. The following High Risk jjr Discharge criteria are identified: None. Discharged to home ambulatory. Condition: stable. Discharge instructions given to patient, Instructed on discharge instructions, follow up and referral plans. medication usage, Demonstrated understanding of instructions, medications, Prescriptions given X 3. No special radiology studies were completed. Property sent home with patient. 09:33 Patient left the ED. jjr Signatures: Dispatcher [employer] EDJia Stephenson, Reg Nydia Daniel, RN RN jjr Natalie Ramos, PA-C PA-C ef1 Areli Mendenhall, RN RN hs1 Yane Yang, RN RN sls1 Sheila Amezcua,RN RN pml McLear, Zoe, PLAYERS ASSISTANT PLAYERS ASSISTANT tmm1 Alicia Shedima mm15 Zahra Suarez,PARTS COUNTERMAN PARTS COUNTERMAN slm Oneyda Lee RN RN af2 Nydia Haro,RN RN jp6 Sarah Serrato se Corrections: (The following items were deleted from the chart) 06:04 06:02 PMHx: Chronic Back pain [Inactive]; jp6 jp6 Chart Complete MTDD
--- NOTE | 2016-02-08 10:34 | EDDOCDS ---
Physician Documentation [facility] Name: Mikie Zhang Age: 45 yrs Sex: Male : 1970 Arrival Date: 02/06/2016 Time: 05:56 Bed 14 Private MD: Disposition: 02/06/16 09:10 Discharged to Home/Self Care. Impression: Foreign body of alimentary tract, part unspecified - Swallowed Tooth brush cap per pt, Generalized abdominal pain, Opioid abuse with unspecified opioid-induced disorder - Benzodiazepine and amphetamine abuse, Superficial injury of head. - Condition is Stable. - Discharge Instructions: Abdominal Pain, Adult, Opioid Use Disorder, Swallowed Foreign Body, Adult, Hcki-[id number], Head Injury, Adult, Flsg-xs-Efap. - Prescriptions for Bentyl 20 mg Oral Tablet - take 1 tablet by ORAL route every 6 hours As needed; 20 tablet. Ibuprofen 800 mg Oral Tablet - take 1 tablet by ORAL route every 8 hours As needed take with food; 30 tablet. ZOFRAN ODT 4 mg - dissolve 1 tablet by ORAL route 4 times per day As needed do not chew, do not swallow whole; 10 tablet. - Medication Reconciliation, Local Pharmacy Hours, Referral List Call for Appointment form. - [facility] ; When: 1 - 2 days; Reason: Recheck today's complaints, Continuance of care. Follow up: Emergency Department; Reason: Worsening of conditions. - Problem is new. - Symptoms have improved. Historical: - Allergies: Sporanox; - Home Meds: 1. none - PMHx: Unable to obtain; - PSHx: none; - Social history: Smoking status: Patient uses tobacco products, current some day smoker. Patient/guardian denies using alcohol, street drugs, No barriers to communication noted, The patient speaks fluent Spanish. - Family history: Not pertinent. - : The pt / caregiver states he / she is not on anticoagulants. Home medication list is obtained from the patient. - Exposure Risk Screening:: None identified. Vital Signs: 02/05 05:55 BP 139 / 65 (auto/); af2 05:57 Pulse 118 MON; Pulse Ox 96% ; af2 05:58 Pulse 116 MON; Pulse Ox 95% ; af2 06:04 BP 139 / 65; Pulse 117; Resp 18; Temp 98.1(TE); Pulse Ox 95% on R/A; Weight 81.65 kg / jp6 180.01 lbs; Height 6 ft. 0 in. (182.88 cm); Pain 8/10; 06:46 BP 149 / 96 (auto/); af2 08:56 BP 137 / 85; Pulse 104; Resp 18; Pulse Ox 97% on R/A; Pain 8/10; jjr 06:04 Body Mass Index 24.41 (81.65 kg, 182.88 cm) jp6 MDM: 07:25 IV Saline Lock ordered. ef1 07:25 NS 0.9% 1000 ml IV at bolus once ordered. ef1 07:25 Ondansetron 4 mg IVP once ordered. ef1 07:25 ketorolac 30 mg IVP once ordered. ef1 07:25 Undress patient appropriately for examination ordered. ef1 07:27 KUB Ordered. EDMS 07:27 Soft Tissue Neck Ordered. EDMS 07:27 Amylase Ordered. EDMS 07:27 Basic Metabolic Profile Ordered. EDMS 07:27 CBC with Diff Ordered. EDMS 07:27 Lipase Ordered. EDMS 07:27 Liver Profile Ordered. EDMS 07:27 Urinalysis Ordered. EDMS 07:27 Urine Culture Ordered. EDMS 07:27 Drug Eval Toxicology ED Only Ordered. EDMS 07:27 NOTHING BY MOUTH+DIET ordered. EDMS 07:30 ETHYL ALCOHOL (ETHANOL) Ordered. EDMS 08:49 CBC with Diff Reviewed. ef1 08:49 Liver Profile Reviewed. ef1 08:49 Drug Eval Toxicology ED Only Reviewed. ef1 08:49 Amylase Reviewed. ef1 08:49 Basic Metabolic Profile Reviewed. ef1 08:49 Lipase Reviewed. ef1 08:49 Urinalysis Reviewed. ef1 08:49 ETHYL ALCOHOL (ETHANOL) Reviewed. ef1 08:49 Soft Tissue Neck Reviewed. ef1 09:37 Financial registration complete. mm15 10:08 [facility] [place] [facility] Payment Agreement was scanned into [employer] and attached to record. mm15 11:30 T-Sheet-- Draft Copy was scanned into [employer] and attached to record. [facility] 02/06 12:50 Radiology Report was scanned into [employer] and attached to record. gb Administered Medications: 02/05 08:01 Drug: NS 0.9% 1000 ml [sodium chloride 0.9 % intravenous solution] Route: IV; Rate: hs1 bolus; Site: right antecubital; 09:31 Follow up: IV Status: Infusion discontinued; IV Intake: 400ml j 08:07 Drug: Ondansetron 4 mg [ondansetron HCl 2 mg/mL intravenous solution (2 mL)] Route: pml IVP; Site: right antecubital; 08:07 Drug: ketorolac 30 mg [ketorolac 30 mg/mL (1 mL) injection solution (1 mL)] Route: IVP; pml Site: right antecubital; Signatures: Dispatcher [employer] EDMS Jia Wiggins, Reg Reg gb Nydia Estrada, RN RN Natalie Perez PA-C PAAbdirizakC ef1 Tushar Alicia mm15 Nydia Haro,RN RN jp6 Sarah Serrato Hannah RN hs1 Sheila Amezcua RN pml The chart was reviewed and I authenticate all verbal orders and agree with the evaluation and treatment provided.Corrections: (The following items were deleted from the chart) 06:04 06:02 PMHx: Chronic Back pain [Inactive]; jp6 jp6 07:31 07:28 ETHYL ALCOHOL (ETHANOL)+LAB ordered. EDMS EDMS 08:10 07:27 Abdomen,Flat\E\Upright,PA CHEST+XR ordered. EDMS EDMS Attachments: 10:08 [facility] Payment Agreement mm15 11:30 T-Sheet-- Draft Copy [facility] Chart Complete MTDD
== END 2016-02-06 09:33 | disposition home or self-care (01) ==
LOC: M ED 05:56
DX: T18.9XXA Foreign body of alimentary tract, part unspecified, initial encounter (principal); R10.84 Generalized abdominal pain; F19.10 Other psychoactive substance abuse, uncomplicated; S00.90XA Unspecified superficial injury of unspecified part of head, initial encounter; X58.XXXA Exposure to other specified factors, initial encounter; Y92.9 Unspecified place or not applicable; Y93.9 Activity, unspecified; Y99.9 Unspecified external cause status; Z72.0 Tobacco use; Z88.8 Allergy status to other drugs, medicaments and biological substances
CPT/HCPCS: 36415; 70360; 74000; 80048; 80076; 80306; 81001; 82150; 83690; 85025; 87086; 96361; 96374; 96375; 99284; G0480; J1885; J2405

== ENCOUNTER → 2019-02-24 | Outpatient (CLI) | payer MEDICARE, MEDICAID ==
[2019-02-24 12:56] LABS: HEMATOCRIT 48.5 % (42.0-52.0); HEMOGLOBIN 15.6 g/dl (13.5-17.5); MEAN CORPUSCULAR HEMOGLOBIN 29.5 pg (27.0-33.0); MEAN CORPUSCULAR HGB CONC 32.2 g/dl (32.0-36.5); MEAN CORPUSCULAR VOLUME 91.9 fl (80.0-96.0); PLATELET COUNT, AUTOMATED 232 10^3/uL (150-450); RED BLOOD COUNT 5.28 10^6/uL (4.30-6.10); WHITE BLOOD COUNT 8.2 10^3/uL (4.0-10.0)
[2019-02-24 13:25] LABS: HEMOGLOBIN A1c 5.9 %
[2019-02-24 14:16] LABS: ALBUMIN 3.9 GM/DL (3.2-5.2); ALT/SGPT 18 U/L (12-78); BILIRUBIN,TOTAL 0.4 MG/DL (0.2-1.0); BLOOD UREA NITROGEN 11 MG/DL (7-18); CALCIUM LEVEL 8.5 MG/DL (8.5-10.1); CARBON DIOXIDE LEVEL 27 MEQ/L (21-32); CHLORIDE LEVEL 107 MEQ/L (98-107); CHOLESTEROL LEVEL 172 MG/DL (<200); GLOMERULAR FILTRATION RATE > 60.0 (>60); GLUCOSE, FASTING 85 MG/DL (70-100); HDL CHOLESTEROL 49 MG/DL (>40); LDL CHOLESTEROL 103 MG/DL (<100); NON-HDL-C 123 MG/DL; POTASSIUM SERUM 4.4 MEQ/L (3.5-5.1); SODIUM LEVEL 139 MEQ/L (136-145); TESTOSTERONE 566 NG/DL (241-827); TRIGLYCERIDES LEVEL 98 MG/DL (<150)
--- NOTE | 2019-02-24 15:19 | REP ---
Lumbar spine five views: Comparison is 08/19/2006. There is disc space narrowing at L5 S1 as an interval change suggesting degenerative disc disease. There is mild osteophytic formation throughout the remainder of the vertebral bodies as an interval change compatible with degenerative disc disease. Mineralization is normal. There is no spondylolysis or spondylolisthesis. The pedicles and facets are unremarkable. Impression: Multilevel degenerative disc disease, most at the L5 S1. Otherwise, negative lumbar spine. Electronically Signed by Fredrick Oliveira MD 02/24/2019 03:10 P
--- NOTE | 2019-02-24 15:21 | REP ---
Right knee at five views : There is no fracture or dislocation. Mineralization and joint spaces are normal. There are no calcifications or foreign bodies. Impression: Negative right knee . Left knee five views : There is no fracture or dislocation. Mineralization and joint spaces are normal. There are no calcifications or foreign bodies. Impression: Negative Left knee . Electronically Signed by Fredrick Oliveira MD 02/24/2019 03:12 P
--- NOTE | 2019-02-25 06:51 | ECGEPIP ---
[facility] Test Date: 2019-02-24 Pat Name: YOLIS POOLE Department: Room: - Gender: Male Elevator Service Technician: ERICKA : 1970 Requested By: Tomer Myles Order Number: [id number] Reading MD: Chetan Rey Measurements Intervals [place] Rate: 73 P: 61 MT: 161 QRS: 71 QRSD: 110 T: 49 QT: 408 QTc: 452 Interpretive Statements Normal sinus rhythm Low QRS complex voltage in the limb leads Delayed anterior R wave progression No significant change since prior tracing of 05/04/2015 Electronically Signed on 02-25-2019 6:51:30 EST by Chetan Rey
== END ==
LOC: M LAB 11:50
PROVIDERS: ATTEND Family Medicine
DX: I10 Essential (primary) hypertension (principal); J44.9 Chronic obstructive pulmonary disease, unspecified; M51.37 Other intervertebral disc degeneration, lumbosacral region; M25.562 Pain in left knee

== ENCOUNTER → 2019-12-31 | Outpatient (REF) | payer MEDICARE, MEDICAID | LOC: M LAB REF 15:27 | PROVIDERS: ATTEND Family Medicine | DX: Z51.81 Encounter for therapeutic drug level monitoring (principal); Z79.899 Other long term (current) drug therapy ==

== ENCOUNTER 2020-05-07 04:34 | Inpatient (IN) | payer MEDICARE, MEDICAID ==
[2020-05-07] VITALS (15 sets, daily range): BP systolic 120–179; BP diastolic 66–96
[~2020-05-07] VITALS: Ht 175.3 cm; Wt 74.5 kg
[2020-05-07] MEDS ORDERED: LORazepam 2 MG/ML VIAL IM ONE (04:40)
[2020-05-07] MEDS ORDERED: LORazepam 2 MG/ML VIAL As Ordered ONE ×6 (05:05→06:14)
[2020-05-07] MEDS: LORazepam 2 MG/ML VIAL IV PRN ×6 (05:07→06:16)
[2020-05-07 05:12] LABS: HEMATOCRIT 46.4 % (42.0-52.0); HEMOGLOBIN 14.8 g/dl (13.5-17.5); MEAN CORPUSCULAR HEMOGLOBIN 29.2 pg (27.0-33.0); MEAN CORPUSCULAR HGB CONC 31.9 g/dl (32.0-36.5); MEAN CORPUSCULAR VOLUME 91.7 fl (80.0-96.0); PLATELET COUNT, AUTOMATED 238 10^3/uL (150-450); RED BLOOD COUNT 5.06 10^6/uL (4.30-6.10); WHITE BLOOD COUNT 6.9 10^3/uL (4.0-10.0)
[2020-05-07] MEDS ORDERED: NS 1,000 ML IV ONE (05:20)
[2020-05-07] MEDS ORDERED: HALOPERIDOL 5MG/ML VIAL (J1630 PER 1) IV STA ×2 (05:52→06:11)
[2020-05-07 05:55] LABS: ACETAMINOPHEN LEVEL < 2.0 UG/ML (10.0-30.0); ALBUMIN 3.9 GM/DL (3.2-5.2); ALT/SGPT 16 U/L (12-78); BILIRUBIN,DIRECT 0.1 MG/DL (0.0-0.2); BILIRUBIN,TOTAL 0.3 MG/DL (0.2-1.0); BLOOD UREA NITROGEN 20 MG/DL (7-18); CALCIUM LEVEL 9.1 MG/DL (8.5-10.1); CARBON DIOXIDE LEVEL 31 MEQ/L (21-32); CHLORIDE LEVEL 107 MEQ/L (98-107); ETHYL ALCOHOL (ETHANOL) < 0.003 % (0.000-0.010); GLOMERULAR FILTRATION RATE > 60.0 (>60); GLUCOSE, FASTING 86 MG/DL (70-100); POTASSIUM SERUM 3.8 MEQ/L (3.5-5.1); SALICYLATE LEVEL 2.6 MG/DL (5.0-30.0); SODIUM LEVEL 143 MEQ/L (136-145); TOTAL PROTEIN 7.7 GM/DL (6.4-8.2)
[2020-05-07] MEDS ORDERED: propofoL 1,000 MG in IV 1 EA IV SCH ×3 (06:18→09:15)
[2020-05-07] MEDS ORDERED: ROCURONIUM BROMIDE 50 MG/5 ML VIAL IV ONE (06:20)
[2020-05-07] MEDS ORDERED: ETOMIDATE INJ 20MG/10ML VIAL IV ONE (06:20)
[2020-05-07] MEDS ORDERED: PROPOFOL 1,000 MG/100 ML VIAL As Ordered ONE (06:22)
[2020-05-07 06:43] LABS: CPK CREATINE PHOSPHOKINASE 127 U/L (39-308)
--- NOTE | 2020-05-07 07:29 | REP ---
INDICATION: POST INTUBATION TUBE PLACEMENT. COMPARISON: A PA and lateral chest dated 05/04/2015. TECHNIQUE: Portable AP chest with the patient semi upright, post intubation. FINDINGS: There is an endotracheal tube with the tip in satisfactory position just above the level of the aortic arch, above the elroy. There is a nasogastric tube terminating satisfactorily in the stomach. Lung delcid are clear except for minor atelectasis in the left lung.. Cardiac size normal. The leonel, mediastinum, and skeletal structures are unremarkable and unchanged. IMPRESSION: The endotracheal tube and nasogastric tube are in satisfactory positions. Lung delcid are clear except for minor atelectasis in the left lung.. <Electronically signed by Fredrick Oliveira > 05/07/20 2014
[2020-05-07] MEDS ORDERED: fentaNYL 100 MCG/2 ML INJECTION (J3010) IV PRN (07:30)
--- NOTE | 2020-05-07 07:32 | REP ---
INDICATION: ?drug packing. COMPARISON: 02/06/2016. TECHNIQUE: Single AP supine view of the abdomen performed portably. FINDINGS: The bowel gas pattern is normal. There is a nasogastric tube with the tip in the abdominal left upper quadrant in satisfactory position. There are no radiopaque foreign bodies. There are no calcifications. Skeletal structures and soft tissues otherwise are unremarkable. IMPRESSION: Normal bowel gas pattern. No radiopaque foreign body. Nasogastric tube. <Electronically signed by Fredrick Oliveira > 05/07/20 0728
[2020-05-07 07:38] LABS: RSV AMPLIFICATION NEGATIVE (NEGATIVE)
[2020-05-07 07:44] LABS: AMPHETAMINES LEVEL URINE POSITIVE (NEGATIVE); BARBITURATES URINE NEGATIVE (NEGATIVE); BENZODIAZEPINES URINE POSITIVE (NEGATIVE); CANNABINOIDS URINE NEGATIVE (NEGATIVE); COCAINE METABOLITE URINE NEGATIVE (NEGATIVE); METHADONE URINE NEGATIVE (NEGATIVE); OPIATES URINE POSITIVE (NEGATIVE); PHENCYCLIDINE URINE NEGATIVE (NEGATIVE)
[2020-05-07] MEDS: PANTOPRAZOLE 40MG VIAL (C9113 PER 1) IV SCH (09:14)
[2020-05-07] MEDS: KCL 20MEQ IN D5/0.45NS 1000ML 1,000 ML IV SCH ×4 (09:14→21:50)
[2020-05-07] MEDS ORDERED: OXYC-517 PO (09:43)
[2020-05-07] MEDS ORDERED: MELO7.5T35 PO (09:43)
[2020-05-07] MEDS ORDERED: ALPR0.5T3 PO (09:43)
[2020-05-07] MEDS ORDERED: DOXA1TAB42 PO (09:43)
[2020-05-07] MEDS ORDERED: COMMENTS (09:48)
[2020-05-07] MEDS: MIDAZOLAM INJ 2MG/2ML VIAL (J2250 PER 1MG) IV PRN ×7 (10:35→23:00)
[2020-05-07] MEDS: IPRATROPIUM 0.5MG/ALBUTEROL 2.5MG INH SOL UD 3ML (DUONEB) NEB SCH ×3 (10:53→19:37)
[2020-05-07] MEDS ORDERED: propofoL 2,400 MG in IV 1 EA IV SCH ×2 (11:00→11:09)
[2020-05-07] MEDS: CHLORHEXIDINE GLUCONATE 0.12 % 15ML UDC (PERIDEX ORAL RINSE) MT SCH ×2 (11:22→20:45)
[2020-05-07] MEDS: MORPHINE 2 MG/ML 1ML VIAL (J2270) IV PRN ×3 (11:22→23:12)
--- NOTE | 2020-05-07 12:20 | HPE ---
HISTORY AND PHYSICAL/CRITICAL CARE ADMIT NOTE DATE OF ADMISSION: 05/07/2020 START TIME: 0815 HISTORY OF PRESENT ILLNESS: I was called to the ER to attend Mikie Zhang. A 50-year-old gentleman with known longstanding difficulties with substance abuse. Reportedly found unconscious. He was given Narcan. He admitted to doing several bags of heroin. Other unknown substances. He became very combative, abusive, and required sedation and intubation in the ER. Allergies and medications currently unobtainable. He does have past ER visits for lower extremity edema several years ago as well as drug abuse and recurrent abdominal pain. PHYSICAL EXAMINATION: An intubated, sedated gentleman intermittently twitching. He is on IV propofol. Current blood pressure is 118/76, heart rate 105 with a sinus mechanism and is regular, respiratory rate generally 18-24 and he does over-breathe the ventilator. HEENT: Otherwise normocephalic, atraumatic. Pupils are small but react. He does have good corneal reflexes. Membranes are moist. Trachea is in the midline. Oral endotracheal and orogastric tube are in place. Chest shows symmetric expansion with good bilateral air entry. No focal wheeze, rhonchi, crackles or rubs. Cardiac exam mildly tachycardic, distant but regular. Peripheral pulses palpable. There is some mild edema on the back of the hands consistent with his combative nature. Multiple tattoos. Abdomen is soft. There are active bowel sounds. No convincing organomegaly or masses. Kasper is in place. Extremities with no cyanosis or clubbing. Neurologically he is sedate but does move all extremities. Psychiatric exam shows him to be quite sedate at the moment. Most recent laboratories show a white blood cell count 6.9, hemoglobin 14.8, platelet count 238,000. No differential. Sodium 143, K 3.8, chloride 107, CO2 31, BUN 20, creatinine 0.8, glucose 166. Liver functions unremarkable. Tox screen is positive for opiates, amphetamines, benzodiazepines. Alcohol is negative. Respiratory panel including SARS COVID-2 is all negative. First blood gas obtained in the ER shows a pH of 7.343, pCO2 of 47.1, pO2 of 81. That is on the ventilator. Settings have been changed and repeat blood gas is pending. Chest x-ray shows tubes in good position. There may be some minimal atelectasis in the left lung. He had an abdominal x-ray which is essentially unremarkable. THE MOST PRESSING PROBLEMS REQUIRING MY PRESENCE AT THE BEDSIDE: 1. Respiratory failure secondary to polysubstance overdose. 2. Drug abuse with overdose. RECOMMENDATIONS: At this point we will facilitate transfer to the Intensive Care Unit. For now he will be kept sedated and mechanically ventilated until the acute effect of whatever toxin he took wears off. His drug screen suggests that he ingested many. We will give him at least 24 hours and then lighten sedation. Hopefully he will be cooperative enough to be safely extubated. In the interim ulcer and DVT prophylaxis are in placed. He will be monitored for any evidence of aspiration. We will assure adequate resuscitation as well as ventilatory support. We will speak to him regarding his drug habits when we are able. I left the bedside at 0904 hours. Forty nine minutes of critical care time were at the bedside not including procedures.
[2020-05-07 12:53] LABS: ABG BASE EXCESS -0.2 (-2.0-2.0); ABG O2 SATURATION 97.6 % (95.0-99.0); ABG PARTIAL PRESSURE O2 101.9 mmHg (75.0-100.0); ABG STANDARD HCO3 24.3 MEQ/L (22.0-26.0); ABG TOTAL CO2 26.3 MEQ/L (22.0-29.0); ABG pH (ARTERIAL) 7.382 UNITS (7.350-7.450)
--- NOTE | 2020-05-07 13:19 | ECGEPIP ---
[facility] - ED Test Date: 2020-05-07 Pat Name: YOLIS POOLE Department: Room: - Gender: Male Mounter Clarinets: LORENA : 1970 Requested By: Jose Matthews Order Number: [id number] Reading MD: Johny Tate Measurements Intervals [place] Rate: 112 P: 72 NE: 154 QRS: 58 QRSD: 96 T: 50 QT: 372 QTc: 507 Interpretive Statements Sinus tachycardia Nonspecific ST T wave changes Delayed R wave progression Prolonged QTc cw 02/24/[address] T wave changes QTc now prolonged Electronically Signed on 05-07-2020 13:18:39 EDT by Johny Tate
[2020-05-07] MEDS: HEPARIN SOD (PORCINE) 5000UNITS/ML 1ML VIAL/SYRINGE SC SCH ×2 (13:50→21:28)
[2020-05-07] MEDS: propofoL 1,000 MG in IV 1 EA IV SCH ×5 (13:52→23:00)
[2020-05-08] VITALS (26 sets, daily range): BP systolic 128–201; BP diastolic 65–98
[2020-05-08] MEDS: IPRATROPIUM 0.5MG/ALBUTEROL 2.5MG INH SOL UD 3ML (DUONEB) NEB SCH ×6 (00:21→20:45)
[2020-05-08] MEDS: MIDAZOLAM INJ 2MG/2ML VIAL (J2250 PER 1MG) IV PRN ×6 (00:35→05:43)
[2020-05-08] MEDS: propofoL 1,000 MG in IV 1 EA IV SCH ×13 (00:36→23:21)
[2020-05-08] MEDS: MORPHINE 2 MG/ML 1ML VIAL (J2270) IV PRN ×5 (01:10→18:14)
[2020-05-08] MEDS ORDERED: REFRIGERATOR IV KEYS XX PRN (01:45)
[2020-05-08] MEDS: KCL 20MEQ IN D5/0.45NS 1000ML 1,000 ML IV SCH ×3 (02:00→15:41)
[2020-05-08] MEDS: PIPERACILLIN/TAZOBACTAM SOD 3.375 GM in D5W MINI-BAG PLUS 50 ML IV SCH ×4 (02:03→20:06)
[2020-05-08] MEDS: MIDAZOLAM HCL 100 MG in D5W 80 ML IV SCH ×2 (02:17→18:19)
[2020-05-08] MEDS: ACETAMINOPHEN TAB 650MG DOSE (2X325MG) PO PRN ×2 (02:17→06:29)
[2020-05-08] MEDS ORDERED: NS 500 ML IV ONE (05:05)
[2020-05-08 05:44] LABS: ABG BASE EXCESS -1.6 (-2.0-2.0); ABG HCO3 21.7 MEQ/L (22.0-26.0); ABG O2 SATURATION 98.7 % (95.0-99.0); ABG PARTIAL PRESSURE CO2 32.9 mmHg (35.0-45.0); ABG PARTIAL PRESSURE O2 116.1 mmHg (75.0-100.0); ABG STANDARD HCO3 23.1 MEQ/L (22.0-26.0); ABG TOTAL CO2 22.8 MEQ/L (22.0-29.0); ABG pH (ARTERIAL) 7.438 UNITS (7.350-7.450)
[2020-05-08] MEDS: HEPARIN SOD (PORCINE) 5000UNITS/ML 1ML VIAL/SYRINGE SC SCH ×3 (05:56→21:22)
[2020-05-08 06:02] LABS: HEMATOCRIT 41.4 % (42.0-52.0); HEMOGLOBIN 13.2 g/dl (13.5-17.5); MEAN CORPUSCULAR HEMOGLOBIN 29.3 pg (27.0-33.0); MEAN CORPUSCULAR HGB CONC 31.9 g/dl (32.0-36.5); MEAN CORPUSCULAR VOLUME 91.8 fl (80.0-96.0); PLATELET COUNT, AUTOMATED 181 10^3/uL (150-450); RED BLOOD COUNT 4.51 10^6/uL (4.30-6.10); WHITE BLOOD COUNT 14.6 10^3/uL (4.0-10.0)
[2020-05-08 06:30] LABS: ALT/SGPT 15 U/L (12-78); BILIRUBIN,TOTAL 0.4 MG/DL (0.2-1.0); BLOOD UREA NITROGEN 5 MG/DL (7-18); CARBON DIOXIDE LEVEL 27 MEQ/L (21-32); CHLORIDE LEVEL 109 MEQ/L (98-107); CHOLESTEROL LEVEL 132 MG/DL (< 200); CPK CREATINE PHOSPHOKINASE 145 U/L (39-308); CREATININE FOR GFR 0.68 MG/DL (0.70-1.30); GLOMERULAR FILTRATION RATE > 60.0 (>60); GLUCOSE, FASTING 125 MG/DL (70-100); LDH LACTATE DEHYDROGENASE 225 U/L (87-241); PHOSPHORUS LEVEL 1.9 MG/DL (2.5-4.9); POTASSIUM SERUM 3.6 MEQ/L (3.5-5.1); SODIUM LEVEL 141 MEQ/L (136-145); TOTAL PROTEIN 6.2 GM/DL (6.4-8.2); TRIGLYCERIDES LEVEL 133 MG/DL (<150)
--- NOTE | 2020-05-08 07:57 | REP ---
INDICATION: Resp Failure. COMPARISON: Portable chest dated 05/07/2020. TECHNIQUE: Portable AP chest with the patient upright. FINDINGS: There is no infiltrate inferiorly in the right lung as an interval change. Left lung demonstrates opacity superimposed by the heart, suggesting developing left lower lobe infiltrate as an interval change. No pleural effusion. The mid and upper lung zones remain clear. Cardiac size is normal. The ET tube tip is in satisfactory position at the level of the aortic arch. There is an NG tube terminating satisfactorily in the upper abdomen. Precise location of the distal tip is excluded at the inferior film margin. IMPRESSION: New bibasilar infiltrates. The ETT and NG remain in satisfactory positions <Electronically signed by Fredrick Oliveira > 05/08/20 [id number]
[2020-05-08] MEDS: PANTOPRAZOLE 40MG VIAL (C9113 PER 1) IV SCH (09:05)
[2020-05-08] MEDS: CHLORHEXIDINE GLUCONATE 0.12 % 15ML UDC (PERIDEX ORAL RINSE) MT SCH ×2 (09:05→20:06)
[2020-05-08] MEDS ORDERED: HALOPERIDOL 5MG/ML VIAL (J1630 PER 1) IV PRN (10:25)
--- NOTE | 2020-05-08 11:11 | REPVR ---
PROCEDURE INFORMATION: Exam: CT Head Without Contrast Exam date and time: 05/08/2020 10:44 AM Age: 50 years old Clinical indication: Altered mental status/memory loss; Confusion or disorientation TECHNIQUE: Imaging protocol: Computed tomography of the head without contrast. Radiation optimization: All CT scans at this facility use at least one of these dose optimization techniques: automated exposure control; mA and/or kV adjustment per patient size (includes targeted exams where dose is matched to clinical indication); or iterative reconstruction. COMPARISON: No relevant prior studies available. FINDINGS: Brain: Examination of the brain demonstrates normal structure and attenuation.The cortical serna / white matter interfaces are preserved throughout the brain.No acute infarction, masses or hemorrhage is seen. Cerebral ventricles: The ventricular system is not dilated and is appropriate for the patient's age. Bones/joints: Unremarkable. No acute fracture. Paranasal sinuses: Visualized sinuses are unremarkable. No fluid levels. Mastoid air cells: Visualized mastoid air cells are well aerated. Soft tissues: Unremarkable. IMPRESSION: No acute infarction, masses or hemorrhage is seen. No acute intracranial abnormality is identified. Electronically signed by: Malcolm Ford On 05/08/2020 11:11:03 AM
--- NOTE | 2020-05-08 11:48 | CCN ---
CRITICAL CARE NOTE DATE: 05/08/2020 I attended anahi Garcia in the ICU. SUBJECTIVE: The patient has been examined, chart reviewed. He is still requiring very high levels of sedation. T-max overnight 102.6, blood pressure 140s to 180s. Heart rate showing 90s to low 100s. Respiratory rate generally in the 20s. Intake and output midnight to midnight 4644 ml in with 3465 ml out. Most recent laboratory showed a sodium 141, potassium 3.6, chloride 109, Co2 27, BUN 5, creatinine 0.68, phosphorus 1.9. Alkaline phosphatase 141, other liver enzymes unremarkable. Albumin 3.0, white blood cell count 14.6, hemoglobin 13.2, platelet count of 181,000. Differential pending. Blood gas done on a PRVC rate of 16, tidal volume 420, PEEP of 5, FiO2 of 40%, has a pH of 7.438, pCO2 of 32.9, pO2 of 116.1, saturation 98.7%. Sputum gram-stain C&S is polymicrobial with many WBCs. Chest x-ray does show right lower lobe infiltrate consistent with our suspicion of aspiration. PHYSICAL EXAMINATION: On examination, he is sedated, but despite sedation, does move all extremities. Pupils are reactive, sclerae are clear, trachea is in the midline. Chest shows diminished, but symmetric in expansion. There is some rhonchi, right greater than left, but do clear mostly with suctioning. No convincing egophony. No obvious wheeze. Heart examination: Mild tachycardia, but regular. Peripheral pulses palpable, no edema. Abdomen: Soft. There are active bowel sounds. No obvious organomegaly or masses. Extremities: No cyanosis or clubbing. Neurological: Sedated. ASSESSMENT: Most pressing problems according to my presence at the bedside: 1. Respiratory failure secondary to polypharmacy overdose. 2. Polysubstance abuse. 3. Aspiration pneumonia. 4. Hypophosphatemia. PLAN: At this point, we will add additional sedatives in hopes of being able to wean the propofol. Gas exchange is reasonable despite his pneumonia. He is now broad-spectrum antimicrobials and I await the final sensitivities on his sputum. We will continue with nebulized bronchodilators, as well as his antibiotics. He is on ulcer and deep venous thrombosis (DVT) prophylaxis. Given his presentation from yesterday, I will image his head. We will replete his phosphorus. We will began tube feeds. In view of the above, he does remain quite critically ill. His prognosis is guarded at best. I left the bedside at 10:34 hours. A total of 51 minutes of critical care time was at the bedside, not including procedures.
[2020-05-08 12:20] LABS: BASO % 0.3 % (0.0-1.0); EOS % 0.1 % (0.0-3.0); LYMPH # 0.5 10^3/uL (1.5-5.0); LYMPH % 3.3 % (24.0-44.0); MONO # 0.7 10^3/uL (0.0-0.8); MONO % 4.9 % (2.0-8.0); NEUTROPHILS # 13.7 10^3/uL (1.5-8.5); NEUTROPHILS % 90.9 % (36.0-66.0)
[2020-05-08] MEDS: NEUTRA-PHOS 1.5 GM PACKET PO SCH ×3 (13:15→20:06)
[2020-05-08] MEDS ORDERED: PROPOFOL 1,000 MG/100 ML VIAL As Ordered ONE (17:41)
[2020-05-09] VITALS (25 sets, daily range): BP systolic 113–173; BP diastolic 62–91
[2020-05-09] MEDS: IPRATROPIUM 0.5MG/ALBUTEROL 2.5MG INH SOL UD 3ML (DUONEB) NEB SCH ×6 (00:13→20:01)
[2020-05-09] MEDS: KCL 20MEQ IN D5/0.45NS 1000ML 1,000 ML IV SCH ×2 (00:28→09:43)
[2020-05-09] MEDS: PIPERACILLIN/TAZOBACTAM SOD 3.375 GM in D5W MINI-BAG PLUS 50 ML IV SCH ×4 (01:16→19:37)
[2020-05-09] MEDS: propofoL 1,000 MG in IV 1 EA IV SCH ×12 (01:17→22:22)
[2020-05-09] MEDS: MORPHINE 2 MG/ML 1ML VIAL (J2270) IV PRN ×6 (05:36→23:52)
[2020-05-09 05:37] LABS: BASO # 0.1 10^3/uL (0.0-0.2); BASO % 0.3 % (0.0-1.0); EOS # 0.1 10^3/uL (0.0-0.5); EOS % 0.7 % (0.0-3.0); HEMATOCRIT 43.2 % (42.0-52.0); HEMOGLOBIN 13.7 g/dl (13.5-17.5); LYMPH # 1.2 10^3/uL (1.5-5.0); LYMPH % 7.8 % (24.0-44.0); MEAN CORPUSCULAR HEMOGLOBIN 29.3 pg (27.0-33.0); MEAN CORPUSCULAR HGB CONC 31.7 g/dl (32.0-36.5); MEAN CORPUSCULAR VOLUME 92.3 fl (80.0-96.0); MONO # 0.7 10^3/uL (0.0-0.8); MONO % 4.3 % (2.0-8.0); NEUTROPHILS # 13.2 10^3/uL (1.5-8.5); NEUTROPHILS % 86.3 % (36.0-66.0); RED BLOOD COUNT 4.68 10^6/uL (4.30-6.10); WHITE BLOOD COUNT 15.3 10^3/uL (4.0-10.0)
[2020-05-09] MEDS: HEPARIN SOD (PORCINE) 5000UNITS/ML 1ML VIAL/SYRINGE SC SCH ×3 (05:52→21:51)
[2020-05-09 05:57] LABS: ALBUMIN 2.9 GM/DL (3.2-5.2); ALT/SGPT 12 U/L (12-78); BILIRUBIN,TOTAL 0.4 MG/DL (0.2-1.0); BLOOD UREA NITROGEN 8 MG/DL (7-18); CALCIUM LEVEL 8.4 MG/DL (8.5-10.1); CARBON DIOXIDE LEVEL 29 MEQ/L (21-32); CHLORIDE LEVEL 110 MEQ/L (98-107); CHOLESTEROL LEVEL 141 MG/DL (< 200); CPK CREATINE PHOSPHOKINASE 82 U/L (39-308); CREATININE FOR GFR 0.59 MG/DL (0.70-1.30); GLOMERULAR FILTRATION RATE > 60.0 (>60); GLUCOSE, FASTING 129 MG/DL (70-100); LDH LACTATE DEHYDROGENASE 299 U/L (87-241); MAGNESIUM LEVEL 1.9 MG/DL (1.8-2.4); POTASSIUM SERUM 3.9 MEQ/L (3.5-5.1); SODIUM LEVEL 145 MEQ/L (136-145); TOTAL PROTEIN 6.2 GM/DL (6.4-8.2); TRIGLYCERIDES LEVEL 99 MG/DL (<150)
[2020-05-09 06:01] LABS: PLATELET COUNT, AUTOMATED 183 10^3/uL (150-450)
[2020-05-09 06:22] LABS: ABG BASE EXCESS 1.1 (-2.0-2.0); ABG HCO3 26.2 MEQ/L (22.0-26.0); ABG O2 SATURATION 97.1 % (95.0-99.0); ABG PARTIAL PRESSURE CO2 43.4 mmHg (35.0-45.0); ABG PARTIAL PRESSURE O2 88.1 mmHg (75.0-100.0); ABG STANDARD HCO3 25.4 MEQ/L (22.0-26.0); ABG TOTAL CO2 27.5 MEQ/L (22.0-29.0); ABG pH (ARTERIAL) 7.398 UNITS (7.350-7.450)
--- NOTE | 2020-05-09 07:57 | REP ---
INDICATION: Resp Failure. COMPARISON: Portable chest dated 05/08/2020 TECHNIQUE: Portable AP chest with the patient upright. FINDINGS: On the comparison study there is a misprint in the report. The 1st sentence of the prior study should read as follows: There is a new infiltrate inferiorly in the right lung as an interval change. On the study today this right lung infiltrate has decreased in size and density. The left lower lung density has also decreased in size and density. The remainder of the lung delcid are clear and unchanged. The ETT and NGT remain in satisfactory positions, unchanged. IMPRESSION: The bibasilar opacities have decreased in size and density. <Electronically signed by Fredrick Oliveira > 05/09/20 0751
[2020-05-09] MEDS: PANTOPRAZOLE 40MG VIAL (C9113 PER 1) IV SCH (09:29)
[2020-05-09] MEDS: CHLORHEXIDINE GLUCONATE 0.12 % 15ML UDC (PERIDEX ORAL RINSE) MT SCH ×2 (09:29→21:52)
[2020-05-09] MEDS: NEUTRA-PHOS 1.5 GM PACKET PO SCH ×3 (09:31→21:51)
[2020-05-09] MEDS: MIDAZOLAM HCL 100 MG in D5W 80 ML IV SCH ×2 (09:47→20:27)
[2020-05-09] MEDS: METOCLOPRAMIDE INJ 10MG/2ML VIAL (J2765 PER 1) IV SCH ×3 (09:56→21:51)
[2020-05-10] VITALS (24 sets, daily range): BP systolic 109–172; BP diastolic 78–102; O2SAT 97
[2020-05-10] MEDS: propofoL 1,000 MG in IV 1 EA IV SCH ×10 (00:01→22:19)
[2020-05-10] MEDS: IPRATROPIUM 0.5MG/ALBUTEROL 2.5MG INH SOL UD 3ML (DUONEB) NEB SCH ×6 (00:05→19:26)
[2020-05-10] MEDS: PIPERACILLIN/TAZOBACTAM SOD 3.375 GM in D5W MINI-BAG PLUS 50 ML IV SCH ×4 (02:27→19:12)
[2020-05-10] MEDS: METOCLOPRAMIDE INJ 10MG/2ML VIAL (J2765 PER 1) IV SCH ×4 (03:50→21:13)
[2020-05-10 04:57] LABS: BASO # 0.1 10^3/uL (0.0-0.2); BASO % 0.4 % (0.0-1.0); EOS # 0.1 10^3/uL (0.0-0.5); EOS % 0.9 % (0.0-3.0); HEMATOCRIT 43.3 % (42.0-52.0); HEMOGLOBIN 13.5 g/dl (13.5-17.5); LYMPH # 1.5 10^3/uL (1.5-5.0); LYMPH % 11.6 % (24.0-44.0); MEAN CORPUSCULAR HEMOGLOBIN 29.7 pg (27.0-33.0); MEAN CORPUSCULAR HGB CONC 31.2 g/dl (32.0-36.5); MEAN CORPUSCULAR VOLUME 95.4 fl (80.0-96.0); MONO # 0.9 10^3/uL (0.0-0.8); MONO % 6.9 % (2.0-8.0); NEUTROPHILS # 10.1 10^3/uL (1.5-8.5); NEUTROPHILS % 79.6 % (36.0-66.0); PLATELET COUNT, AUTOMATED 216 10^3/uL (150-450); RED BLOOD COUNT 4.54 10^6/uL (4.30-6.10); WHITE BLOOD COUNT 12.6 10^3/uL (4.0-10.0)
[2020-05-10 05:24] LABS: ALBUMIN 2.9 GM/DL (3.2-5.2); ALT/SGPT 27 U/L (12-78); BILIRUBIN,TOTAL 0.4 MG/DL (0.2-1.0); BLOOD UREA NITROGEN 10 MG/DL (7-18); CALCIUM LEVEL 8.4 MG/DL (8.5-10.1); CARBON DIOXIDE LEVEL 33 MEQ/L (21-32); CHLORIDE LEVEL 108 MEQ/L (98-107); CHOLESTEROL LEVEL 159 MG/DL (< 200); CPK CREATINE PHOSPHOKINASE 78 U/L (39-308); CREATININE FOR GFR 0.58 MG/DL (0.70-1.30); GLOMERULAR FILTRATION RATE > 60.0 (>60); GLUCOSE, FASTING 132 MG/DL (70-100); LDH LACTATE DEHYDROGENASE 363 U/L (87-241); POTASSIUM SERUM 4.5 MEQ/L (3.5-5.1); SODIUM LEVEL 143 MEQ/L (136-145); TOTAL PROTEIN 6.7 GM/DL (6.4-8.2); TRIGLYCERIDES LEVEL 172 MG/DL (<150)
[2020-05-10 05:44] LABS: ABG BASE EXCESS 0.2 (-2.0-2.0); ABG HCO3 24.7 MEQ/L (22.0-26.0); ABG O2 SATURATION 96.8 % (95.0-99.0); ABG PARTIAL PRESSURE CO2 39.5 mmHg (35.0-45.0); ABG PARTIAL PRESSURE O2 89.3 mmHg (75.0-100.0); ABG STANDARD HCO3 24.7 MEQ/L (22.0-26.0); ABG TOTAL CO2 25.9 MEQ/L (22.0-29.0); ABG pH (ARTERIAL) 7.414 UNITS (7.350-7.450)
[2020-05-10] MEDS: MORPHINE 2 MG/ML 1ML VIAL (J2270) IV PRN ×3 (05:52→20:00)
[2020-05-10] MEDS: HEPARIN SOD (PORCINE) 5000UNITS/ML 1ML VIAL/SYRINGE SC SCH ×3 (05:52→21:13)
[2020-05-10] MEDS: KCL 20MEQ IN D5/0.45NS 1000ML 1,000 ML IV SCH ×2 (07:20→20:52)
--- NOTE | 2020-05-10 07:51 | REP ---
INDICATION: Resp Failure. COMPARISON: 05/09/2020, portable chest. TECHNIQUE: Portable AP chest with the patient semi upright. FINDINGS: The bibasilar opacities continue to decrease. Remainder of the lung delcid are clear and unchanged. The ETT and NGT remain in satisfactory positions, unchanged. IMPRESSION: The bibasilar opacities continue to decrease. <Electronically signed by Fredrick Oliveira > 05/10/20 0747
[2020-05-10] MEDS: CHLORHEXIDINE GLUCONATE 0.12 % 15ML UDC (PERIDEX ORAL RINSE) MT SCH ×2 (09:11→20:52)
[2020-05-10] MEDS: NEUTRA-PHOS 1.5 GM PACKET PO SCH ×3 (09:12→20:52)
[2020-05-10] MEDS: PANTOPRAZOLE 40MG VIAL (C9113 PER 1) IV SCH (09:12)
--- NOTE | 2020-05-10 09:34 | CCN ---
CRITICAL CARE NOTE DATE: 05/09/2020 START TIME: 0850 STOP TIME: 09 SUBJECTIVE: I again attended Mikie Zhang here in the intensive care unit. Patient has been examined and chart reviewed. I spoke at length with the nurse at bedside. Maximum temperature (T-max) overnight 100.1, blood pressure 120, intermittently as high as the 160s-170s, improves with sedation. Heart rate generally in the low 100s with a sinus mechanism. Respiratory rate anywhere from 14-20. Ins and outs midnight to midnight 6228 mL in with 7805 mL out. Most recent cultures show a sputum has grown both Streptococcus pneumoniae and Pseudomonas aeruginosa. Sensitivities are reviewed. Other laboratories show sodium 145, potassium 3.9, chloride 110, CO2 29, BUN 8, creatinine 0.59, glucose 129, phosphorus improved to 3.0. Albumin 2.9, alkaline phosphatase down to 127 today. White blood cell count 15.3, hemoglobin 13.7, platelet count of 183,000, 86% segs, no bands. Blood gas done on a PRVC rate of 16, tidal volume 430, PEEP of 5, FiO2 of 40%, has a pH of 7.398, pCO2 43.4, pO2 88, saturation 98%. Chest x-ray this morning shows lines and tubes in good position. There is improvement in his right lower lobe infiltrate. PHYSICAL EXAMINATION: He is sedate but moves all extremities when stimulated. Pupils do react. Sclerae clear. Trachea is in the midline. CHEST: Shows diminished but symmetric expansion. Less rhonchi today. No convincing egophony. No rubs or crackles. HEART EXAM: Mildly tachycardic. Regular. No convincing murmur. Peripheral pulses palpable. No obvious edema. ABDOMEN: Soft with active bowel sounds. EXTREMITIES: No cyanosis or clubbing. NEUROLOGIC: He is sedate but moves all extremities. PSYCHIATRIC EXAM: Shows him to be sedate. MOST PRESSING PROBLEMS REQUIRING MY PRESENCE AT THE BEDSIDE: 1. Respiratory failure secondary to polypharmacy overdose. 2. Drug ingestion. 3. Aspiration pneumonia. 4. Previous history of non-Hodgkin's lymphoma. 5. Previous and longstanding history of drug use. At this point, he is on Zosyn and that should be appropriate for his current culture results. We will continue to monitor this closely. He had mildly elevated residuals from his tube feeds and we will begin some Reglan in hopes of helping with that. I made adjustments in his intravenous (IV) fluids. He will be changed to a different mode of ventilation in hopes of beginning the weaning process. We have been able to come down somewhat on the sedation and my hope is that within the next 24-48 hours we will be able to lighten the sedation enough to achieve endotracheal extubation. Certainly, given his presentation however, we will proceed cautiously with that. He remains on ulcer and deep venous thrombosis (DVT) prophylaxis. We will continue to monitor his electrolytes as well as his white blood cell count. The findings on his chest x-ray with improvement are encouraging and hopefully that will continue. At this point, we will proceed as outlined above. Overall, he remains critically ill. I left the bedside at 0935 hours. Total of 45 minutes of critical care at the bedside not including procedure.
[2020-05-10] MEDS: MIDAZOLAM INJ 2MG/2ML VIAL (J2250 PER 1MG) IV PRN ×8 (10:22→20:03)
[2020-05-10] MEDS: ACETAMINOPHEN TAB 650MG DOSE (2X325MG) PO PRN (10:34)
--- NOTE | 2020-05-10 11:20 | CCN ---
CRITICAL CARE NOTE DATE: 05/10/2020 START TIME: 0840 STOP TIME: 915 SUBJECTIVE: I again attended Mikie Zhang here in the Intensive Care Unit. Patient has been examined. Chart reviewed. I spoke at length with the nurse at the bedside. T-max overnight 101.3, down to 100.2 this morning. Blood pressure 140s to 170. Heart rate generally in the low 100s. I's and O's midnight to midnight 4,193 mL in with 3,525 mL out. Most recent laboratories show a white blood cell count 12.6, hemoglobin 13.5, platelet count 216,000, 79% segs, no bands. Sodium 143, potassium 4.5, chloride 108, CO2 33, BUN 6, creatinine 0.58, glucose 132. AST 55, ALT 27, alkaline phosphatase 131, LDH 363. Blood gas done on an SIMV of 10, tidal volume 420, PEEP 5, pressure support of 12, FiO2 of 30% has a pH of 7.414, pCO2 39.5, PaO2 of 89.3. Chest x-ray shows continued improvement in his right lower lobe infiltrate. OBJECTIVE: GENERAL: He is still requiring significant sedation. HEENT: Pupils do react. Sclera clear. Trachea is in the midline. CHEST: Chest shows diminished but symmetric expansion. There are some rhonchi that do clear with cough and suctioning. No convincing egophony. HEART: Mildly tachycardic but regular. Peripheral pulses palpable. No edema. ABDOMEN: Soft. There are active bowel sounds. No convincing organomegaly or masses. EXTREMITIES: No cyanosis or clubbing. NEUROLOGIC: He is sedate. PSYCHIATRIC: Psychiatric exam shows him to be sedate as well. MOST PRESSING PROBLEMS REQUIRING MY PRESENCE AT THE BEDSIDE: 1. Respiratory failure secondary to drug overdose. 2. Polypharmacy overdose. 3. Longstanding difficulties with substance abuse. PLAN: At this point, we will attempt to lighten the sedation as best we can. We will supplement with other agents as needed. For now, he is tolerating enteral feeds. He is on ulcer and DVT prophylaxis. He clearly had significant aspiration and had a significant right lower lobe infiltrate consistent with an aspiration event. Sputum did grow Streptococcus pneumoniae and Pseudomonas both sensitive to the antimicrobials which he is on. Fever curve overall continues to improve. At this point, however, he remains quite critically ill. Will proceed as outlined above. I left the bedside at 0916 hours. A total of 36 minutes of critical care time at the bedside not including procedures.
[2020-05-11] VITALS (24 sets, daily range): BP systolic 125–169; BP diastolic 81–108; O2SAT 95–96
[2020-05-11] MEDS: IPRATROPIUM 0.5MG/ALBUTEROL 2.5MG INH SOL UD 3ML (DUONEB) NEB SCH ×6 (00:40→19:45)
[2020-05-11] MEDS: MIDAZOLAM INJ 2MG/2ML VIAL (J2250 PER 1MG) IV PRN ×3 (00:54→07:01)
[2020-05-11] MEDS: propofoL 1,000 MG in IV 1 EA IV SCH ×4 (00:54→07:52)
[2020-05-11] MEDS: MORPHINE 2 MG/ML 1ML VIAL (J2270) IV PRN ×3 (00:54→07:01)
[2020-05-11] MEDS: PIPERACILLIN/TAZOBACTAM SOD 3.375 GM in D5W MINI-BAG PLUS 50 ML IV SCH ×4 (01:47→19:45)
[2020-05-11] MEDS: METOCLOPRAMIDE INJ 10MG/2ML VIAL (J2765 PER 1) IV SCH ×2 (04:00→09:35)
[2020-05-11 05:16] LABS: BASO # 0.1 10^3/uL (0.0-0.2); BASO % 0.8 % (0.0-1.0); EOS # 0.3 10^3/uL (0.0-0.5); EOS % 2.7 % (0.0-3.0); HEMATOCRIT 44.2 % (42.0-52.0); LYMPH # 1.7 10^3/uL (1.5-5.0); LYMPH % 17.5 % (24.0-44.0); MEAN CORPUSCULAR HEMOGLOBIN 29.2 pg (27.0-33.0); MEAN CORPUSCULAR HGB CONC 31.7 g/dl (32.0-36.5); MEAN CORPUSCULAR VOLUME 92.3 fl (80.0-96.0); MONO # 0.9 10^3/uL (0.0-0.8); MONO % 9.4 % (2.0-8.0); NEUTROPHILS # 6.7 10^3/uL (1.5-8.5); NEUTROPHILS % 69.2 % (36.0-66.0); PLATELET COUNT, AUTOMATED 228 10^3/uL (150-450); RED BLOOD COUNT 4.79 10^6/uL (4.30-6.10); WHITE BLOOD COUNT 9.7 10^3/uL (4.0-10.0)
[2020-05-11 05:40] LABS: ALBUMIN 2.9 GM/DL (3.2-5.2); ALT/SGPT 40 U/L (12-78); BILIRUBIN,TOTAL 0.3 MG/DL (0.2-1.0); BLOOD UREA NITROGEN 15 MG/DL (7-18); CALCIUM LEVEL 8.4 MG/DL (8.5-10.1); CARBON DIOXIDE LEVEL 28 MEQ/L (21-32); CHLORIDE LEVEL 110 MEQ/L (98-107); CHOLESTEROL LEVEL 174 MG/DL (< 200); CPK CREATINE PHOSPHOKINASE 62 U/L (39-308); CREATININE FOR GFR 0.54 MG/DL (0.70-1.30); GLOMERULAR FILTRATION RATE > 60.0 (>60); GLUCOSE, FASTING 125 MG/DL (70-100); LDH LACTATE DEHYDROGENASE 250 U/L (87-241); PHOSPHORUS LEVEL 4.1 MG/DL (2.5-4.9); POTASSIUM SERUM 4.3 MEQ/L (3.5-5.1); SODIUM LEVEL 141 MEQ/L (136-145); TOTAL PROTEIN 6.6 GM/DL (6.4-8.2); TRIGLYCERIDES LEVEL 162 MG/DL (<150)
[2020-05-11 06:04] LABS: ABG BASE EXCESS 2.1 (-2.0-2.0); ABG HCO3 25.3 MEQ/L (22.0-26.0); ABG O2 SATURATION 97.5 % (95.0-99.0); ABG PARTIAL PRESSURE CO2 35.1 mmHg (35.0-45.0); ABG PARTIAL PRESSURE O2 87.4 mmHg (75.0-100.0); ABG STANDARD HCO3 26.3 MEQ/L (22.0-26.0); ABG TOTAL CO2 26.3 MEQ/L (22.0-29.0); ABG pH (ARTERIAL) 7.475 UNITS (7.350-7.450)
[2020-05-11] MEDS: HEPARIN SOD (PORCINE) 5000UNITS/ML 1ML VIAL/SYRINGE SC SCH ×3 (06:23→21:48)
--- NOTE | 2020-05-11 07:43 | REP ---
INDICATION: Resp Failure. COMPARISON: Portable chest dated 05/10/2020. TECHNIQUE: Portable AP chest with the patient semi upright. FINDINGS: The lung delcid are clear. The bibasilar densities have resolved. Cardiac size is normal. The leonel, mediastinum, and skeletal structures are unremarkable. The ETT and NGT are unchanged. IMPRESSION: The bibasilar densities have resolved. The ETT and NGT are unchanged. <Electronically signed by Fredrick Oliveira > 05/11/20 0761
[2020-05-11] MEDS: NEUTRA-PHOS 1.5 GM PACKET PO SCH ×3 (07:54→21:00)
[2020-05-11] MEDS: CHLORHEXIDINE GLUCONATE 0.12 % 15ML UDC (PERIDEX ORAL RINSE) MT SCH (07:54)
[2020-05-11] MEDS: PANTOPRAZOLE 40MG VIAL (C9113 PER 1) IV SCH (09:00)
[2020-05-11] MEDS: HALOPERIDOL 5MG/ML VIAL (J1630 PER 1) IV PRN ×3 (09:35→19:45)
--- NOTE | 2020-05-11 10:23 | CCN ---
CRITICAL CARE NOTE DATE: 05/07/2020 START TIME: 0900 STOP TIME: 939 SUBJECTIVE: I again attended Mikie Nolen here in the Intensive Care Unit. Patient was examined and chart reviewed. I spoke at length with the nurse at the bedside. T-max overnight 99.5, blood pressure 130 to 170s, heart rates generally in the 100s, sinus mechanism, respiratory rate generally in the 20s. In's and outs midnight to midnight: 4067 ml in with 3010 ml out. Laboratories shows white blood cell count 9.7, hemoglobin 14.0, platelet count 228,000, 69% segs, no bands. Sodium is 141, potassium is 4.3, chloride 110, CO2 28, BUN 15, creatinine 0.54, glucose 125. LFTs essentially unchanged. Albumin 2.9. Blood gas done this morning on an SMV of 12: Tidal volume 450, PEEP of 5, FIO2 of 30%, pH 7.475, pCO2 35, PO2 87.4. Chest x-ray shows no acute findings. Sputum grew not only Strep pneumoniae and Staph aureus but a Pseudomonas aeruginosa as well. He remains on Zosyn which is reasonable sensitivities to all of the above organisms. OBJECTIVE: GENERAL: He is sedate but easily arousable. HEENT: Pupils react, sclera are clear. Trachea is in the midline. CHEST: Symmetric expansion, occasional rhonchus. No wheeze. CARDIAC: Distant but regular. Peripheral pulses are palpable with no edema. ABDOMEN: Soft with active bowel sounds. EXTREMITIES: No cyanosis or clubbing. NEUROLOGIC: Sedate but moves all extremities. PSYCH: Patient is sedate. PROBLEMS: The most pressing problems at the bedside: 1. Polypharmacy drug overdose requiring intubation. 2. Respiratory failure on the basis of the above. 3. Hepatitis C. At this point, he appears ready for extubation. His propofol was stopped. He was mildly agitated and he was extubated. He is oxygenating well on room air. He is quite abusive to the nursing staff and he was counseled in that regard. Lorne p.r.n. was written for. He clearly needs to finish antibiotics for his aspiration pneumonitis but I am not confident that will happen. Now that he is extubated I have spoken with Dr. Regulo Kinney from the Hospitalist Service who has been kind enough to assume his care. We discussed the issues at hand. He is well aware of them. At this point, will advance his diet as tolerated. My suspicion is that he will sign out AMA. My hope, however is that he will at least complete his antibiotics as he has a very significant polymicrobial aspiration event. Will proceed as outlined above and see what care he will tolerate. I left the bedside at 0940 hours. A total of 40 minutes of Critical Care time at the bedside not including procedures.
[2020-05-11] MEDS: KCL 20MEQ IN D5/0.45NS 1000ML 1,000 ML IV SCH (10:31)
--- NOTE | 2020-05-11 13:11 | IPNPDOC ---
Text Note Date of Service The patient was seen on 05/11/20. NOTE Subjective: Patient is a 50-year-old male who presented to [facility] on 05/07/2020 after he was found unconscious. He was given Narcan in the field after he was noted to have done several bags of heroin. While ER, patient became combative and abusive and was subsequently given medications for sedation and was intubated. Patient remained on mechanical ventilation and was given broad-spectrum antibiotics for his polymicrobial infection / pneumonitis. Patient was seen and examined at the bedside. Currently patient reports that they're not in any pain. Patient denies any nausea or vomiting. Denies chest pain, palpitations, diarrhea. Patient has a Kasper catheter in place. Objective: Vitals (See below) General: Lying in bed, no acute distress, comfortable, Awake / Alert HEENT: NC, AT CVS: +S1S2 Lungs: Fair air entry b/l, no appreciable wheezing, rhonchi or rales Abdomen: Soft, ND, NT Extremities: No evidence of edema, - Calf tenderness Assessment and plan: s/p Ventilator dependent respiratory failure - Patient was intubated on 05/07 an extubated on 05/11 Polymicrobial pneumonitis / pneumonia - Patient is hemodynamically stable and afebrile - Leukocytosis has resolved - Sputum cultures noted to have multiple organisms - Blood cultures noted negative - c/w Zosyn Polysubstance abuse - UDS noted - s/p Narcan in the field - c/w supportive care - c/w Haldol PRN GI prophylaxis - c/w Protonix DVT prophylaxis - c/w Heparin VS,Fishbone, I+O VS, Fishbone, I+O Laboratory Tests 05/11/20 05:03 Vital Signs Date Time Temp Pulse Resp B/P (MAP) Pulse Ox O2 Delivery O2 Flow Rate FiO2 05/11/20 11:01 110 162/108 (126) 05/11/20 10:00 20 93 Room Air 05/11/20 09:10 30 05/11/20 07:30 98.6 05/10/20 10:37 5.0 I&O- Last 24 Hours up to 6 AM 05/11/20 06:00 Intake Total 3308 ml Output Total 2815 ml Balance 493 ml ARNOLDO STORY MD May 11, 2020 13:11
[2020-05-12] VITALS (11 sets, daily range): BP systolic 127–157; BP diastolic 61–99
[2020-05-12] MEDS: IPRATROPIUM 0.5MG/ALBUTEROL 2.5MG INH SOL UD 3ML (DUONEB) NEB SCH ×4 (00:10→11:41)
[2020-05-12] MEDS ORDERED: HALOPERIDOL 5MG/ML VIAL (J1630 PER 1) As Ordered ONE (00:59)
[2020-05-12] MEDS ORDERED: ZOSYN 3.375GM VIAL (J2543) As Ordered ONE (01:57)
[2020-05-12] MEDS: PIPERACILLIN/TAZOBACTAM SOD 3.375 GM in D5W MINI-BAG PLUS 50 ML IV SCH ×2 (02:00→08:00)
[2020-05-12 04:57] LABS: BASO # 0.1 10^3/uL (0.0-0.2); BASO % 0.6 % (0.0-1.0); EOS # 0.2 10^3/uL (0.0-0.5); EOS % 1.7 % (0.0-3.0); HEMATOCRIT 44.1 % (42.0-52.0); HEMOGLOBIN 14.8 g/dl (13.5-17.5); LYMPH # 1.8 10^3/uL (1.5-5.0); LYMPH % 12.4 % (24.0-44.0); MEAN CORPUSCULAR HEMOGLOBIN 29.7 pg (27.0-33.0); MEAN CORPUSCULAR HGB CONC 33.6 g/dl (32.0-36.5); MEAN CORPUSCULAR VOLUME 88.4 fl (80.0-96.0); MONO # 1.4 10^3/uL (0.0-0.8); MONO % 9.4 % (2.0-8.0); NEUTROPHILS # 10.9 10^3/uL (1.5-8.5); NEUTROPHILS % 75.6 % (36.0-66.0); PLATELET COUNT, AUTOMATED 243 10^3/uL (150-450); RED BLOOD COUNT 4.99 10^6/uL (4.30-6.10); WHITE BLOOD COUNT 14.5 10^3/uL (4.0-10.0)
[2020-05-12 05:51] LABS: ALBUMIN 3.6 GM/DL (3.2-5.2); ALT/SGPT 55 U/L (12-78); BILIRUBIN,TOTAL 0.7 MG/DL (0.2-1.0); BLOOD UREA NITROGEN 28 MG/DL (7-18); CALCIUM LEVEL 9.3 MG/DL (8.5-10.1); CARBON DIOXIDE LEVEL 23 MEQ/L (21-32); CHLORIDE LEVEL 106 MEQ/L (98-107); CHOLESTEROL LEVEL 206 MG/DL (< 200); CPK CREATINE PHOSPHOKINASE 703 U/L (39-308); CREATININE FOR GFR 0.67 MG/DL (0.70-1.30); GLOMERULAR FILTRATION RATE > 60.0 (>60); GLUCOSE, FASTING 90 MG/DL (70-100); LDH LACTATE DEHYDROGENASE 375 U/L (87-241); PHOSPHORUS LEVEL 3.8 MG/DL (2.5-4.9); POTASSIUM SERUM 4.4 MEQ/L (3.5-5.1); SODIUM LEVEL 136 MEQ/L (136-145); TOTAL PROTEIN 7.9 GM/DL (6.4-8.2); TRIGLYCERIDES LEVEL 236 MG/DL (<150)
[2020-05-12] MEDS: HEPARIN SOD (PORCINE) 5000UNITS/ML 1ML VIAL/SYRINGE SC SCH (06:17)
[2020-05-12] MEDS ORDERED: NS 1,000 ML IV SCH (07:10)
[2020-05-12] MEDS: NEUTRA-PHOS 1.5 GM PACKET PO SCH (09:08)
[2020-05-12] MEDS: PANTOPRAZOLE 40MG VIAL (C9113 PER 1) IV SCH (09:08)
--- NOTE | 2020-05-12 10:32 | IPNPDOC ---
Text Note Date of Service The patient was seen on 05/12/20. VS,Martha, I+O VS, Martha, I+O Laboratory Tests 05/12/20 04:43 Vital Signs Date Time Temp Pulse Resp B/P (MAP) Pulse Ox O2 Delivery O2 Flow Rate FiO2 05/12/20 09:21 98.2 117 19 142/88 (106) 96 Room Air 05/11/20 09:10 30 05/10/20 10:37 5.0 I&O- Last 24 Hours up to 6 AM 05/12/20 06:00 Intake Total 1530 ml Output Total 1710 ml Balance -180 ml ARNOLDO STORY MD May 12, 2020 10:32
[2020-05-12] MEDS: ACETAMINOPHEN TAB 650MG DOSE (2X325MG) PO PRN (11:38)
[2020-05-12] MEDS ORDERED: traMADol 50 MG TAB PO PRN (13:15)
[2020-05-12] MEDS ORDERED: LEVO750T13 PO (14:39)
--- NOTE | 2020-05-12 17:16 | DS.PDOC ---
Discharge Summary General Date of Admission May 07, 2020 at 08:48 Date of Discharge 05/12/2020 Discharge Summary PROCEDURES PERFORMED DURING STAY: [None]. ADMITTING DIAGNOSES / DISCHARGE DIAGNOSES: s/p Ventilator dependent respiratory failure Polymicrobial pneumonitis / pneumonia - 2/2 Streptococcus pneumoniae, Pseudomonas aeruginosa, Staphylococcus aureus, Haemophilus influenza Polysubstance abuse Rhabdomyolysis GI prophylaxis DVT prophylaxis COMPLICATIONS/CHIEF COMPLAINT: Heroin abuse HISTORY OF PRESENT ILLNESS: Patient is a 50-year-old male who presented to [facility] on 05/07/2020 after he was found unconscious. He was given Narcan in the field after he was noted to have done several bags of heroin. While ER, patient became combative and abusive and was subsequently given medications for sedation and was intubated. Patient remained on mechanical ventilation and was given broad-spectrum antibiotics for his polymicrobial infection / pneumonitis. This afternoon patient had reported that he would likely to leave against medical advice. Patient was in [facility] and was oriented to person, place and time reported with the president was had an understanding of what has brought him to the hospital and the risks of leaving against medical advise. Patient was instructed that he should remain in the hospital for continued monitoring antibiotics. Physical and occupational therapy until he sees been cleared to go home. However, patient refused this and accepted the risks of worsening of his medical condition, worsening infections, disability and/or de ath. Patient signed out AGAINST MEDICAL ADVICE. HOSPITAL COURSE: s/p Ventilator dependent respiratory failure - Patient was intubated on 05/07 an extubated on 05/11 Polymicrobial pneumonitis / pneumonia - 2/2 Streptococcus pneumoniae, Pseudomonas aeruginosa, Staphylococcus aureus, Haemophilus influenza - Patient is hemodynamically stable and afebrile - Leukocytosis has increased today - Sputum cultures noted to have multiple organisms (05/07 and 05/08) - Blood cultures 05/08: Negative at 72 hours - c/w Zosyn (Day #5); Will continue Levaquin on discharge Rhabdomyolysis - Was started on IV fluid hydration; but patient refused to stay in the hospital for continued care Polysubstance abuse - Was combative while in the ER on admission - Today patient is fully oriented to person / place / time / president; had an understanding of series of events that brought him to the hospital - UDS noted - s/p Narcan in the field - c/w supportive care - s/p Haldol PRN GI prophylaxis - c/w Protonix DVT prophylaxis - c/w Heparin DISCHARGE MEDICATIONS: Please see below. ALLERGIES: Please see below. PHYSICAL EXAMINATION ON DISCHARGE: Vitals (See below) General: Sitting up in bed, comfortable, oriented to person / place / time / president HEENT: NC, AT CVS: +S1S2 Lungs: Air entry is fair bilaterally. Without wheezing or crackles Abdomen: Remains soft without any appreciated tenderness or distention Extremities: No edema appreciated of lower extremities LABORATORY DATA: Please see below. ACTIVITY: [As tolerated]. DISCHARGE PLAN: Follow up with PCP as soon as possible Remain compliant with treatment plan and medications Return to the ER if you change your mind DISPOSITION: Against Medical Advice. DISCHARGE CONDITION: [Stable]. TIME SPENT ON DISCHARGE: 35 minutes. Vital Signs/I&Os Vital Signs Date Time Temp Pulse Resp B/P (MAP) Pulse Ox O2 Delivery O2 Flow Rate FiO2 05/12/20 13:39 22 Room Air 05/12/20 12:00 97.8 121 136/92 (107) 97 05/11/20 09:10 30 05/10/20 10:37 5.0 I&O- Last 24 Hours up to 6 AM 05/12/20 06:00 Intake Total 1530 ml Output Total 1710 ml Balance -180 ml Laboratory Data Labs 24H Laboratory Tests 2 05/12/20 04:43: Immature Granulocyte % (Auto) 0.3, Neutrophils (%) (Auto) 75.6H, Lymphocytes (%) (Auto) 12.4L, Monocytes (%) (Auto) 9.4H, Eosinophils (%) (Auto) 1.7, Basophils (%) (Auto) 0.6, Neutrophils # (Auto) 10.9H, Lymphocytes # (Auto) 1.8, Monocytes # (Auto) 1.4H, Eosinophils # (Auto) 0.2, Basophils # (Auto) 0.1, Nucleated Red Blood Cells % (auto) 0.0, Anion Gap 7L, Glomerular Filtration Rate > 60.0, Calcium Level 9.3, Phosphorus Level 3.8, Total Bilirubin 0.7#, Aspartate Amino Transf (AST/SGOT) 81H, Alanine Aminotransferase (ALT/SGPT) 55, Alkaline Phosphatase 158H, Lactate Dehydrogenase 375H, Total Creatine Kinase 703#H, Total Protein 7.9, Albumin 3.6#, Albumin/Globulin Ratio 0.8, Triglycerides Level 236H, Cholesterol Level 206H CBC/BMP Laboratory Tests 05/12/20 04:43 Microbiology Microbiology 05/08/20 Blood Culture - Preliminary, Resulted No Growth after 72 hours. All specime... 05/08/20 Blood Culture - Preliminary, Resulted No Growth after 72 hours. All specime... 05/08/20 Gram Stain - Final, Complete 05/08/20 Sputum Culture - Final, Complete Streptococcus Pneumoniae Pseudomonas Aeruginosa Staphylococcus Aureus Haemophilus Influenzae 05/07/20 Gram Stain - Final, Complete 05/07/20 Sputum Culture - Final, Complete Pseudomonas Aeruginosa Streptococcus Pneumoniae Haemophilus Influenzae Discharge Medications Scheduled Doxazosin Mesylate (Doxazosin Mesylate) 1 Mg Tablet, 1 MG PO DAILY, (Reported) Levofloxacin (Levofloxacin) 750 Mg Tablet, 1 TAB PO DAILY Meloxicam (Meloxicam) 7.5 Mg Tablet, 7.5 MG PO BID, (Reported) Allergies Coded Allergies: itraconazole (Verified Allergy, Unknown, 05/07/20) ARNOLDO STORY MD May 12, 2020 17:16
[2020-05-13] MEDS ORDERED: LEVO750T13 PO (11:37)
== END 2020-05-12 15:01 | disposition left against medical advice (07) | DRG 917 ==
LOC: M ED 04:34 → M ED INP 08:48 → ENRESERV 10:08 → M ICU 10:10 → M PCU 05-12 09:11
PROVIDERS: ADMIT Internal Medicine Pulmonary Disease; ATTEND Internal Medicine
PROC: 5A1955Z Respiratory Ventilation, Greater than 96 Consecutive Hours (ICD-10-PCS; principal; 2020-05-07)
DX: T40.1X1A Poisoning by heroin, accidental (unintentional), initial encounter (principal); J96.90 Respiratory failure, unspecified, unspecified whether with hypoxia or hypercapnia; J69.0 Pneumonitis due to inhalation of food and vomit; M62.82 Rhabdomyolysis; Z88.8 Allergy status to other drugs, medicaments and biological substances; E83.39 Other disorders of phosphorus metabolism; B18.2 Chronic viral hepatitis C; B95.5 Unspecified streptococcus as the cause of diseases classified elsewhere; B96.5 Pseudomonas (aeruginosa) (mallei) (pseudomallei) as the cause of diseases classified elsewhere; B95.61 Methicillin susceptible Staphylococcus aureus infection as the cause of diseases classified elsewhere; B96.3 Hemophilus influenzae [H. influenzae] as the cause of diseases classified elsewhere

== ENCOUNTER 2020-05-13 10:17 | Emergency (ER) | payer MEDICARE, MEDICAID ==
[~2020-05-13] VITALS: Ht 180.3 cm; Wt 77.3 kg
[~2020-05-13 10:17] MED LIST changes: +ALPR0.5T3 PO; +COMMENTS; +DOXA1TAB42 PO; +LEVO750T13 PO; +MELO7.5T35 PO; +OXYC-517 PO
[2020-05-13 10:21] VITALS: BP 160/106
[2020-05-13] MEDS ORDERED: NS 1,000 ML IV SCH (10:40)
--- NOTE | 2020-05-13 11:03 | REP ---
INDICATION: Altered Mental Status. COMPARISON: Portable chest dated 05/11/2020. TECHNIQUE: Portable AP chest with the patient upright. FINDINGS: The lung delcid are clear. Cardiac size is normal. The leonel, mediastinum and skeletal structures are unremarkable. The ETT and NGT have been removed. IMPRESSION: Essentially negative PA and lateral chest The NGT and ETT a been removed. <Electronically signed by Fredrick Oliveira > 05/13/20 1050
--- NOTE | 2020-05-13 11:26 | REP ---
INDICATION: Altered Mental Status COMPARISON: 05/08/2020 TECHNIQUE: Axial noncontrast images from the skull base to the vertex with coronal reformations. This CT examination was performed using the following dose reduction techniques: Automated exposure control, adjustment of mA and/or kv according to the patient's size, and use of iterative reconstruction technique. FINDINGS: The ventricles, sulci, and cisterns are normal in position and appearance. Valero-white differentiation is maintained. No acute intracranial hemorrhage, mass/mass effect, pathology or trauma/injury. No evidence for acute infarction. No extra-axial fluid collection. Calvarium is intact. Paranasal sinuses and mastoid air cells are clear. IMPRESSION: Normal noncontrast head CT. No evidence for acute intracranial pathology or trauma/injury. <Electronically signed by Glenn Hauser > 05/13/20 1120
[2020-05-13] MEDS ORDERED: LEVO750T13 PO (11:37)
[2020-05-13 11:38] LABS: VENOUS BASE EXCESS -1.9 (-2.0-2.0); VENOUS HCO3 21.1 MEQ/L (23.0-27.0); VENOUS O2 SATURATION 88.7 % (60.0-80.0); VENOUS PARTIAL PRESSURE CO2 31.8 mmHg (38.0-50.0); VENOUS PARTIAL PRESSURE O2 57.2 mmHg (30.0-50.0); VENOUS PH 7.439 UNITS (7.330-7.430); VENOUS STANDARD HCO3 22.7 MEQ/L
[2020-05-13 11:44] LABS: BASO # 0.1 10^3/uL (0.0-0.2); BASO % 0.8 % (0.0-1.0); EOS # 0.2 10^3/uL (0.0-0.5); EOS % 1.9 % (0.0-3.0); HEMATOCRIT 50.5 % (42.0-52.0); HEMOGLOBIN 16.5 g/dl (13.5-17.5); LYMPH # 1.5 10^3/uL (1.5-5.0); MEAN CORPUSCULAR HEMOGLOBIN 29.5 pg (27.0-33.0); MEAN CORPUSCULAR HGB CONC 32.7 g/dl (32.0-36.5); MEAN CORPUSCULAR VOLUME 90.2 fl (80.0-96.0); MONO % 10.3 % (2.0-8.0); NEUTROPHILS # 6.7 10^3/uL (1.5-8.5); NEUTROPHILS % 70.4 % (36.0-66.0); PLATELET COUNT, AUTOMATED 293 10^3/uL (150-450); WHITE BLOOD COUNT 9.5 10^3/uL (4.0-10.0)
[2020-05-13 12:31] LABS: ACETAMINOPHEN LEVEL < 2.0 UG/ML (10.0-30.0); ALBUMIN 3.7 GM/DL (3.2-5.2); ALT/SGPT 58 U/L (12-78); BILIRUBIN,DIRECT 0.1 MG/DL (0.0-0.2); BILIRUBIN,TOTAL 0.5 MG/DL (0.2-1.0); BLOOD UREA NITROGEN 32 MG/DL (7-18); CALCIUM LEVEL 9.6 MG/DL (8.5-10.1); CARBON DIOXIDE LEVEL 24 MEQ/L (21-32); CHLORIDE LEVEL 106 MEQ/L (98-107); CK-MB VALUE MASS 1.8 NG/ML (<3.6); CPK CREATINE PHOSPHOKINASE 678 U/L (39-308); CREATININE FOR GFR 0.64 MG/DL (0.70-1.30); ETHYL ALCOHOL (ETHANOL) < 0.003 % (0.000-0.010); GLOMERULAR FILTRATION RATE > 60.0 (>60); GLUCOSE, FASTING 94 MG/DL (70-100); MB/CK RELATIVE INDEX 0.27 (< OR =4); POTASSIUM SERUM 3.8 MEQ/L (3.5-5.1); SALICYLATE LEVEL < 1.7 MG/DL (5.0-30.0); SODIUM LEVEL 139 MEQ/L (136-145); TOTAL PROTEIN 8.1 GM/DL (6.4-8.2); TROPONIN I < 0.02 NG/ML (< 0.10)
[2020-05-13 12:42] LABS: OSMOLALITY SERUM 292 MOSM/KG (275-295)
--- NOTE | 2020-05-14 05:56 | ECGEPIP ---
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
== END 2020-05-13 12:15 | disposition left against medical advice (07) ==
LOC: M ED 10:17
DX: F19.10 Other psychoactive substance abuse, uncomplicated (principal); Z53.9 Procedure and treatment not carried out, unspecified reason; Z86.59 Personal history of other mental and behavioral disorders; Z88.8 Allergy status to other drugs, medicaments and biological substances

== ENCOUNTER 2022-11-30 00:56 | Emergency (ER) | payer MEDICARE, MEDICAID ==
[~2022-11-30] VITALS: Ht 182.9 cm; Wt 84.1 kg
[2022-11-30 00:56] VITALS: BP 136/85; TEMP 99.1; O2SAT 95
[~2022-11-30 00:56] MED LIST changes: +LEVO1TAB40 PO; -LEVO750T13 PO
== END 2022-11-30 01:35 | disposition left against medical advice (07) ==
LOC: M ED 00:56
DX: Z53.21 Procedure and treatment not carried out due to patient leaving prior to being seen by health care provider (principal)

== ENCOUNTER 2023-10-25 16:07 | Emergency (ER) | payer MEDICARE, MEDICAID ==
[~2023-10-25] VITALS: Ht 180.3 cm; Wt 74.5 kg
[2023-10-25] MEDS ORDERED: ISOVUE-370 76% 100ML VIAL As Ordered ONE (16:38)
[2023-10-25 17:37] LABS: BASO % 0.4 % (0.0-1.0); HEMATOCRIT 45.7 % (42.0-52.0); HEMOGLOBIN 15.4 g/dl (13.5-17.5); LYMPH # 1.2 10^3/uL (1.5-5.0); LYMPH % 11.1 % (24.0-44.0); MEAN CORPUSCULAR HEMOGLOBIN 28.4 pg (27.0-33.0); MEAN CORPUSCULAR HGB CONC 33.7 g/dl (32.0-36.5); MEAN CORPUSCULAR VOLUME 84.2 fl (80.0-96.0); MONO # 0.7 10^3/uL (0.0-0.8); MONO % 6.5 % (2.0-8.0); NEUTROPHILS # 8.7 10^3/uL (1.5-8.5); NEUTROPHILS % 81.7 % (36.0-66.0); PLATELET COUNT, AUTOMATED 301 10^3/uL (150-450); RED BLOOD COUNT 5.43 10^6/uL (4.30-6.10); WHITE BLOOD COUNT 10.6 10^3/uL (4.0-10.0)
[2023-10-25 17:53] LABS: INR 1.12; PARTIAL THROMBOPLASTIN TIME 34.8 SECONDS (24.8-34.2)
[2023-10-25 18:02] LABS: LIPASE 25 U/L (12-53)
[2023-10-25 18:03] LABS: ETHYL ALCOHOL (ETHANOL) < 0.003 % (0.000-0.010)
[2023-10-25 18:04] LABS: AMYLASE 62 U/L (30-118)
[2023-10-25] MEDS: LIDOCAINE W/EPINEPHRINE 1% 20ML VIAL SC ONE (18:04)
[2023-10-25 18:05] LABS: ALBUMIN 3.6 G/DL (3.2-5.2); ALKALINE PHOSPHATASE 120 U/L (46-116); ALT/SGPT 17 U/L (7.0-40); AST/SGOT 13 U/L (<34); BILIRUBIN,DIRECT 0.3 MG/DL (<0.4); BILIRUBIN,TOTAL 0.8 MG/DL (0.3-1.2); BLOOD UREA NITROGEN 21 MG/DL (9-23); CALCIUM LEVEL 9.2 MG/DL (8.5-10.1); CARBON DIOXIDE LEVEL 27 MMOL/L (20-31); CHLORIDE LEVEL 103 MMOL/L (98-107); CREATININE FOR GFR 0.88 MG/DL (0.70-1.30); GLOMERULAR FILTRATION RATE > 60.0 (>56); GLUCOSE, FASTING 99 MG/DL (60-100); SODIUM LEVEL 136 MMOL/L (136-145); TOTAL PROTEIN 7.5 G/DL (5.7-8.2)
[2023-10-25] MEDS: NS 500 ML IV ONE (18:21)
[2023-10-25] MEDS: NS 1,000 ML IV ONE (19:04)
[2023-10-25 19:53] VITALS: BP 148/81; TEMP 97.3; O2SAT 98
== END 2023-10-25 20:15 | disposition short-term general hospital (02) ==
LOC: M ED 16:07 → EDBD 16:07 → M ED 20:15
DX: S09.90XA Unspecified injury of head, initial encounter (principal); S01.01XA Laceration without foreign body of scalp, initial encounter; R20.2 Paresthesia of skin; R07.89 Other chest pain; W19.XXXA Unspecified fall, initial encounter; R51.9 Headache, unspecified; M50.221 Other cervical disc displacement at C4-C5 level; M50.222 Other cervical disc displacement at C5-C6 level; M50.223 Other cervical disc displacement at C6-C7 level; M25.78 Osteophyte, vertebrae; F17.200 Nicotine dependence, unspecified, uncomplicated; F19.10 Other psychoactive substance abuse, uncomplicated; Z88.8 Allergy status to other drugs, medicaments and biological substances; Y92.9 Unspecified place or not applicable; Y93.89 Activity, other specified; Y99.9 Unspecified external cause status; Z79.899 Other long term (current) drug therapy
CPT/HCPCS: 12002; 70450; 71045; 71260; 72125; 74177; 80047; 80048; 80076; 82077; 82150; 83690; 85025; 85610; 85730; 86850; 86900; 86901; 93005; 93041; 94760; 96360; 96361; 99285; Q9967

== ENCOUNTER 2023-10-26 23:01 | Emergency (ER) | payer MEDICARE, MEDICAID ==
[~2023-10-26] VITALS: Ht 180.3 cm; Wt 75.5 kg
[2023-10-26 23:34] VITALS: TEMP 98.1
[2023-10-26 23:41] LABS: BASO # 0.1 10^3/uL (0.0-0.2); BASO % 0.6 % (0.0-1.0); EOS # 0.1 10^3/uL (0.0-0.5); EOS % 0.7 % (0.0-3.0); HEMATOCRIT 42.6 % (42.0-52.0); HEMOGLOBIN 14.6 g/dl (13.5-17.5); LYMPH # 1.5 10^3/uL (1.5-5.0); LYMPH % 17.9 % (24.0-44.0); MEAN CORPUSCULAR HGB CONC 34.3 g/dl (32.0-36.5); MEAN CORPUSCULAR VOLUME 84.5 fl (80.0-96.0); MONO # 0.9 10^3/uL (0.0-0.8); MONO % 10.3 % (2.0-8.0); NEUTROPHILS # 5.8 10^3/uL (1.5-8.5); NEUTROPHILS % 70.1 % (36.0-66.0); PLATELET COUNT, AUTOMATED 262 10^3/uL (150-450); RED BLOOD COUNT 5.04 10^6/uL (4.30-6.10); WHITE BLOOD COUNT 8.3 10^3/uL (4.0-10.0)
[2023-10-27 00:09] LABS: BLOOD UREA NITROGEN 20 MG/DL (9-23); CALCIUM LEVEL 8.5 MG/DL (8.5-10.1); CARBON DIOXIDE LEVEL 25 MMOL/L (20-31); CHLORIDE LEVEL 108 MMOL/L (98-107); CK-MB VALUE MASS < 1.0 NG/ML (<3.6); CREATININE FOR GFR 0.79 MG/DL (0.70-1.30); GLOMERULAR FILTRATION RATE > 60.0 (>56); GLUCOSE, FASTING 115 MG/DL (60-100); POTASSIUM SERUM 3.5 MMOL/L (3.5-5.1); SODIUM LEVEL 139 MMOL/L (136-145)
[2023-10-27 00:10] LABS: CPK CREATINE PHOSPHOKINASE 60 U/L (46-171); MB/CK RELATIVE INDEX 1.66 (< OR =4)
[2023-10-27 01:13] LABS: MAGNESIUM LEVEL 1.8 MG/DL (1.8-2.4)
[2023-10-27] MEDS: NS 1,000 ML IV ONE (01:18)
[2023-10-27] MEDS: MECLIZINE 25 MG TABLET PO ONE (01:18)
[2023-10-27 01:30] VITALS: BP 118/84; O2SAT 99
[2023-10-27] MEDS ORDERED: MECL-209 PO (01:52)
== END 2023-10-27 02:39 | disposition home or self-care (01) ==
LOC: M ED 23:01
DX: R07.9 Chest pain, unspecified (principal); H81.4 Vertigo of central origin; I45.81 Long QT syndrome; I49.3 Ventricular premature depolarization; J45.909 Unspecified asthma, uncomplicated; M54.50 Low back pain, unspecified; Z88.8 Allergy status to other drugs, medicaments and biological substances; Z79.899 Other long term (current) drug therapy